=== PATIENT | male | born 1970 | race Caucasian/White ===

== ENCOUNTER 2017-04-18 11:24 | Inpatient (IN) | payer MEDICAID, OTHER ==
[~2017-04-18] VITALS: Ht 175.3 cm; Wt 75.0 kg
[2017-04-18] MEDS ORDERED: HALOPERIDOL LACTATE 5 MG/ML VIAL IM ONE (11:45)
[2017-04-18] MEDS ORDERED: LORazepam 2 MG/ML VIAL IM ONE (11:45)
[2017-04-18] MEDS ORDERED: DiphenhydrAMINE HCL 50 MG/ML VIAL IM ONE (11:45)
[2017-04-18] MEDS ORDERED: HALOPERIDOL 5 MG TABLET PO PRN (12:30)
[2017-04-18] MEDS ORDERED: LORazepam 2 MG TABLET PO PRN (12:30)
[2017-04-18] MEDS ORDERED: ZOLPIDEM TARTRATE 10 MG TABLET PO PRN (12:30)
[2017-04-18 12:43] LABS: BASOPHILS % (AUTO) 0.5 % (0.0-2.0); EOSINOPHILS % (AUTO) 2.2 % (1.0-6.0); HEMATOCRIT 41.8 % (41-53); LYMPHOCYTES # (AUTO) 1.6 K/uL (1.0-4.8); LYMPHOCYTES % (AUTO) 24.2 % (22.0-44.0); MEAN CORPUSCULAR HEMOGLOBIN 28.4 pg (26.0-34.0); MEAN CORPUSCULAR HGB CONC 33.5 G/dL (31.0-37.0); MEAN CORPUSCULAR VOLUME 85 fL (80-100); MONOCYTES # (AUTO) 0.5 K/uL (0.1-1.0); MONOCYTES % (AUTO) 7.2 % (2.0-9.0); NEUTROPHILS # (AUTO) 4.5 K/uL (1.8-7.7); NEUTROPHILS % (AUTO) 65.9 % (40.0-70.0); PLATELET COUNT (AUTO) 242 K/uL (150-450); RED BLOOD CELL COUNT(AUTO) 4.92 MIL/uL (4.50-5.90); RED CELL DISTRIBUTION WIDTH 13.7 % (11.5-14.5); WHITE BLOOD COUNT (AUTO) 6.8 K/uL (4.5-11.0)
[2017-04-18 12:56] LABS: ANION GAP 6 mmol/L (8-16); CALCIUM, TOTAL 8.6 mg/dL (8.8-10.5); CARBON DIOXIDE 29 mmol/L (22-29); CHLORIDE 105 mmol/L (98-107); CREATININE 0.86 mg/dL (0.60-1.30); GLOMERULAR FILTR. RATE CALC > 60 mL/min (>60); POTASSIUM 4.2 mmol/L (3.5-5.1); SODIUM SERUM 140 mmol/L (136-145); UREA NITROGEN, BLOOD 13 mg/dL (7-18)
[2017-04-18 14:22] LABS: ALANINE AMINOTRANSFERASE 16 U/L (12-78); ALBUMIN 3.5 g/dL (3.4-5.0); ASPARTATE AMINOTRANSFERASE 17 U/L (15-37); CHOL/HDL RATIO 6.5 (4.2-7.3)
[2017-04-18 14:39] LABS: BILIRUBIN,TOTAL 0.3 mg/dL (0.1-1.0)
[2017-04-18 16:03] VITALS: BP 121/76
[2017-04-18] MEDS ORDERED: INFLUENZA VIRUS VACCINE QVS 2017-18 (3YR+)/PF 60 MCG/0.5 ML SYRINGE IM ONE (19:30)
[2017-04-19] MEDS ORDERED: MAG HYDROX/AL HYDROX/SIMETH ES 30 ML SUSPENSION UDCUP PO PRN (07:45)
[2017-04-19] MEDS ORDERED: IBUPROFEN 600 MG TABLET PO PRN (07:45)
[2017-04-19] MEDS ORDERED: CloNIDine HCL 0.1 MG TABLET PO PRN (07:45)
[2017-04-19] MEDS ORDERED: BACITRACIN 28.4 GM OINTMENT TP PRN (07:45)
[2017-04-19] MEDS ORDERED: PETROLATUM,WHITE 71 GM JELLY TP PRN (07:45)
[2017-04-19] MEDS ORDERED: MAGNESIUM HYDROXIDE SUSPENSION 30 ML UDCUP PO PRN (07:45)
[2017-04-19] MEDS ORDERED: LOPERAMIDE HCL 2 MG CAPSULE PO PRN (07:45)
[2017-04-19] MEDS ORDERED: BENZOCAINE/MENTHOL LOZENGE MM PRN (07:45)
[2017-04-19] MEDS ORDERED: ALBUTEROL SULFATE HFA 90 MCG/PUFF 8 GM INHALER IH PRN (07:45)
[2017-04-19] MEDS ORDERED: ONDANSETRON HCL 4 MG TABLET PO PRN (07:45)
[2017-04-19] MEDS ORDERED: ACETAMINOPHEN 325 MG TABLET PO PRN (07:45)
[2017-04-19] MEDS: OMEGA-3/DHA/EPA/FISH OIL 500 MG CAPSULE PO SCH (09:00)
[2017-04-19] MEDS: RisperiDONE 1 MG TABLET PO SCH ×2 (09:00→17:00)
[2017-04-20] MEDS: RisperiDONE 1 MG TABLET PO SCH ×2 (08:28→16:46)
[2017-04-20] MEDS: OMEGA-3/DHA/EPA/FISH OIL 500 MG CAPSULE PO SCH (08:28)
[2017-04-21] MEDS: OMEGA-3/DHA/EPA/FISH OIL 500 MG CAPSULE PO SCH (09:00)
[2017-04-21] MEDS: RisperiDONE 1 MG TABLET PO SCH (09:00)
[2017-04-21] MEDS ORDERED: RISP0.5T61 PO (09:20)
== END 2017-04-21 10:30 | disposition home or self-care (01) | DRG 751 ==
LOC: EMS 11:26 → B3A 13:44
DX: F29 Unspecified psychosis not due to a substance or known physiological condition (principal); F15.20 Other stimulant dependence, uncomplicated; E83.51 Hypocalcemia; E78.5 Hyperlipidemia, unspecified; K59.00 Constipation, unspecified; R45.850 Homicidal ideations; Z59.0 Homelessness; Z78.1 Physical restraint status; F17.200 Nicotine dependence, unspecified, uncomplicated; Z71.51 Drug abuse counseling and surveillance of drug abuser; Z28.21 Immunization not carried out because of patient refusal
CPT/HCPCS: 84439; 84443; 96372; 99285; G0480; J1200; J1630; J2060

== ENCOUNTER 2017-09-22 08:02 | Emergency (ER) | payer MEDICAID, OTHER ==
[~2017-09-22] VITALS: Ht 170.2 cm; Wt 81.8 kg
[~2017-09-22 08:02] MED LIST: RISP1 PO
[2017-09-22 08:39] LABS: BASOPHILS % (AUTO) 0.8 % (0.0-2.0); EOSINOPHILS % (AUTO) 3.1 % (1.0-6.0); HEMATOCRIT 46.8 % (41-53); LYMPHOCYTES # (AUTO) 2.2 K/uL (1.0-4.8); LYMPHOCYTES % (AUTO) 33.7 % (22.0-44.0); MEAN CORPUSCULAR HEMOGLOBIN 28.5 pg (26.0-34.0); MEAN CORPUSCULAR HGB CONC 34.1 G/dL (31.0-37.0); MEAN CORPUSCULAR VOLUME 84 fL (80-100); MONOCYTES # (AUTO) 0.6 K/uL (0.1-1.0); MONOCYTES % (AUTO) 9.7 % (2.0-9.0); NEUTROPHILS # (AUTO) 3.5 K/uL (1.8-7.7); NEUTROPHILS % (AUTO) 52.7 % (40.0-70.0); PLATELET COUNT (AUTO) 234 K/uL (150-450); RED CELL DISTRIBUTION WIDTH 13.8 % (11.5-14.5)
[2017-09-22 08:50] LABS: ANION GAP 10 mmol/L (8-16); CALCIUM, TOTAL 9.3 mg/dL (8.8-10.5); CARBON DIOXIDE 27 mmol/L (22-29); CHLORIDE 103 mmol/L (98-107); CREATININE 0.97 mg/dL (0.60-1.30); GLOMERULAR FILTR. RATE CALC > 60 mL/min (>60); GLUCOSE,RANDOM 88 mg/dL (70-110); POTASSIUM 4.3 mmol/L (3.5-5.1); SODIUM SERUM 140 mmol/L (136-145); UREA NITROGEN, BLOOD 12 mg/dL (7-18)
[2017-09-22 08:56] LABS: ALANINE AMINOTRANSFERASE 23 U/L (12-78); ALBUMIN 4.2 g/dL (3.4-5.0); ALKALINE PHOSPHATASE 88 U/L (46-116); ASPARTATE AMINOTRANSFERASE 20 U/L (15-37); TOTAL PROTEIN, SERUM 7.9 g/dL (6.4-8.2)
[2017-09-22 09:00] LABS: AMPHET/METH SCREEN,URINE POSITIVE (NEGATIVE); BARBITURATE SCREEN, URINE NEGATIVE (NEGATIVE); BENZODIAZEPINES SCREEN,URINE NEGATIVE (NEGATIVE); CANNABINOID SCREEN,URINE NEGATIVE (NEGATIVE); COCAINE SCREEN,URINE NEGATIVE (NEGATIVE); METHADONE SCREEN, URINE NEGATIVE (NEGATIVE); OPIATE SCREEN,URINE NEGATIVE (NEGATIVE)
[2017-09-22 09:02] LABS: PHENCYCLIDINE SCREEN,URINE NEGATIVE (NEGATIVE)
[2017-09-22] MEDS ORDERED: HALOPERIDOL 5 MG TABLET PO ONE (09:30)
[2017-09-22] MEDS ORDERED: LORazepam 2 MG TABLET PO ONE (09:30)
[2017-09-22] MEDS ORDERED: LORazepam 1 MG TABLET ONE (09:45)
[2017-09-22] MEDS ORDERED: LORazepam 1 MG TABLET PO ONE (09:45)
[2017-09-22 10:29] VITALS: BP 109/70
== END 2017-09-22 10:54 | disposition home or self-care (01) ==
LOC: EMS 08:03
DX: F20.0 Paranoid schizophrenia (principal); F15.10 Other stimulant abuse, uncomplicated; F17.210 Nicotine dependence, cigarettes, uncomplicated
CPT/HCPCS: 36415; 80053; 80307; 85025; 99284; 99406; G0480

== ENCOUNTER 2017-10-10 23:57 | Inpatient (IN) | payer MEDICAID, OTHER ==
[~2017-10-10] VITALS: Ht 170.2 cm; Wt 81.8 kg
[2017-10-11] MEDS ORDERED: LORazepam 2 MG TABLET PO PRN (02:00)
[2017-10-11] MEDS ORDERED: QUEtiapine FUMARATE 100 MG TABLET PO PRN (02:00)
[2017-10-11] MEDS ORDERED: ZOLPIDEM TARTRATE 10 MG TABLET PO PRN (02:00)
[2017-10-11 03:01] VITALS: BP 110/87
[2017-10-11] MEDS ORDERED: PNEUMOCOCCAL VACCINE POLYVALENT 0.5 ML VIAL [PPSV23] IM ONE (03:30)
[2017-10-11 08:28] VITALS: BP 106/65
[2017-10-11] MEDS ORDERED: BENZOCAINE/MENTHOL LOZENGE MM PRN (08:30)
[2017-10-11] MEDS ORDERED: MAG HYDROX/AL HYDROX/SIMETH ES 30 ML SUSPENSION UDCUP PO PRN (08:30)
[2017-10-11] MEDS ORDERED: CloNIDine HCL 0.1 MG TABLET PO PRN (08:30)
[2017-10-11] MEDS ORDERED: ALBUTEROL SULFATE HFA 90 MCG/PUFF 8 GM INHALER IH PRN (08:30)
[2017-10-11] MEDS ORDERED: PETROLATUM,WHITE 71 GM JELLY TP PRN (08:30)
[2017-10-11] MEDS ORDERED: LOPERAMIDE HCL 2 MG CAPSULE PO PRN (08:30)
[2017-10-11] MEDS ORDERED: IBUPROFEN 600 MG TABLET PO PRN (08:30)
[2017-10-11] MEDS ORDERED: ONDANSETRON HCL 4 MG TABLET PO PRN (08:30)
[2017-10-11] MEDS ORDERED: ACETAMINOPHEN 325 MG TABLET PO PRN (08:30)
[2017-10-11] MEDS ORDERED: BACITRACIN 28.4 GM OINTMENT TP PRN (08:30)
[2017-10-11] MEDS ORDERED: MAGNESIUM HYDROXIDE SUSPENSION 30 ML UDCUP PO PRN (08:30)
[2017-10-11] MEDS: RisperiDONE 1 MG TABLET PO SCH ×2 (10:45→20:26)
[2017-10-11 16:19] VITALS: BP 112/70
[2017-10-11] MEDS: SIMVASTATIN 10 MG TABLET PO SCH (20:26)
[2017-10-12 06:42] VITALS: BP 120/86
[2017-10-12 08:38] VITALS: BP 102/60
[2017-10-12] MEDS: HYDROCORTISONE 0.5% 30 GM CREAM TP SCH ×2 (09:00→17:00)
[2017-10-12] MEDS: RisperiDONE 1 MG TABLET PO SCH ×2 (09:00→21:00)
[2017-10-12 16:21] VITALS: BP 102/64
[2017-10-12] MEDS: SIMVASTATIN 10 MG TABLET PO SCH (21:00)
[2017-10-13 06:00] VITALS: BP 111/60
[2017-10-13] MEDS: RisperiDONE 1 MG TABLET PO SCH ×2 (09:00→20:15)
[2017-10-13] MEDS: HYDROCORTISONE 0.5% 30 GM CREAM TP SCH ×2 (09:00→17:08)
[2017-10-13 09:33] VITALS: BP 112/72
[2017-10-13 16:52] VITALS: BP 119/65
[2017-10-13] MEDS: SIMVASTATIN 10 MG TABLET PO SCH (20:15)
[2017-10-14 06:34] VITALS: BP 110/62
[2017-10-14 08:24] VITALS: BP 101/60
[2017-10-14] MEDS: RisperiDONE 1 MG TABLET PO SCH ×2 (08:56→20:05)
[2017-10-14] MEDS: HYDROCORTISONE 0.5% 30 GM CREAM TP SCH ×2 (08:56→17:21)
[2017-10-14 16:45] VITALS: BP 105/65
[2017-10-14] MEDS: SIMVASTATIN 10 MG TABLET PO SCH (20:05)
[2017-10-15 01:23] VITALS: BP 102/60
[2017-10-15] MEDS: HYDROCORTISONE 0.5% 30 GM CREAM TP SCH ×2 (08:35→16:23)
[2017-10-15] MEDS: RisperiDONE 1 MG TABLET PO SCH ×2 (08:35→20:17)
[2017-10-15 08:44] VITALS: BP 120/72
[2017-10-15 08:53] LABS: BASOPHILS % (AUTO) 0.6 % (0.0-2.0); EOSINOPHILS % (AUTO) 3.5 % (1.0-6.0); HEMATOCRIT 40.5 % (41-53); HEMOGLOBIN 13.8 g/dL (13.5-17.5); LYMPHOCYTES # (AUTO) 2.2 K/uL (1.0-4.8); LYMPHOCYTES % (AUTO) 33.7 % (22.0-44.0); MEAN CORPUSCULAR HEMOGLOBIN 28.4 pg (26.0-34.0); MEAN CORPUSCULAR VOLUME 83 fL (80-100); MONOCYTES # (AUTO) 0.6 K/uL (0.1-1.0); MONOCYTES % (AUTO) 9.6 % (2.0-9.0); NEUTROPHILS # (AUTO) 3.4 K/uL (1.8-7.7); NEUTROPHILS % (AUTO) 52.6 % (40.0-70.0); PLATELET COUNT (AUTO) 186 K/uL (150-450); RED BLOOD CELL COUNT(AUTO) 4.86 MIL/uL (4.50-5.90); RED CELL DISTRIBUTION WIDTH 13.1 % (11.5-14.5)
[2017-10-15 09:41] LABS: ALANINE AMINOTRANSFERASE 21 U/L (12-78); ALBUMIN 3.3 g/dL (3.4-5.0); ALKALINE PHOSPHATASE 62 U/L (46-116); ANION GAP 6 mmol/L (8-16); ASPARTATE AMINOTRANSFERASE 14 U/L (15-37); BILIRUBIN,TOTAL 0.3 mg/dL (0.1-1.0); CALCIUM, TOTAL 8.5 mg/dL (8.8-10.5); CARBON DIOXIDE 29 mmol/L (22-29); CHLORIDE 105 mmol/L (98-107); CHOLESTEROL 209 mg/dL (131-200); FREE T4 (FREE THYROXINE) 0.76 ng/dL (0.76-1.46); GLOMERULAR FILTR. RATE CALC > 60 mL/min (>60); GLUCOSE,RANDOM 86 mg/dL (70-110); HDL CHOLESTEROL 42 mg/dL (40-60); LDL CHOL (CALC.) 145 mg/dL (0-130); POTASSIUM 4.1 mmol/L (3.5-5.1); SODIUM SERUM 140 mmol/L (136-145); THYROID STIMULATING HORMONE 2.38 uIU/mL (0.36-3.74); TOTAL PROTEIN, SERUM 6.5 g/dL (6.4-8.2); TRIGLYCERIDES 111 mg/dL (15-150); UREA NITROGEN, BLOOD 14 mg/dL (7-18)
[2017-10-15 16:31] VITALS: BP 123/68
[2017-10-15] MEDS: SIMVASTATIN 10 MG TABLET PO SCH (20:17)
[2017-10-16 02:08] VITALS: BP 101/63
[2017-10-16 08:11] VITALS: BP 119/74
[2017-10-16] MEDS: RisperiDONE 1 MG TABLET PO SCH ×2 (08:27→20:18)
[2017-10-16] MEDS: HYDROCORTISONE 0.5% 30 GM CREAM TP SCH ×2 (08:27→16:02)
[2017-10-16 16:10] VITALS: BP 109/79
[2017-10-16] MEDS: SIMVASTATIN 10 MG TABLET PO SCH (20:18)
[2017-10-17 04:25] VITALS: BP 103/65
[2017-10-17 08:51] VITALS: BP 109/6
[2017-10-17] MEDS: RisperiDONE 1 MG TABLET PO SCH ×2 (09:45→20:17)
[2017-10-17] MEDS: HYDROCORTISONE 0.5% 30 GM CREAM TP SCH ×2 (09:45→16:10)
[2017-10-17 16:10] VITALS: BP 108/66
[2017-10-17] MEDS: SIMVASTATIN 10 MG TABLET PO SCH (20:17)
[2017-10-18 06:43] VITALS: BP 108/65
[2017-10-18 08:36] VITALS: BP 108/76
[2017-10-18] MEDS ORDERED: RISP1 PO (08:55)
[2017-10-18] MEDS: HYDROCORTISONE 0.5% 30 GM CREAM TP SCH (09:05)
[2017-10-18] MEDS: RisperiDONE 1 MG TABLET PO SCH (09:05)
[2017-10-18] MEDS ORDERED: SIMV-259 PO (09:09)
== END 2017-10-18 14:05 | disposition home or self-care (01) | DRG 750 ==
LOC: B2S 10-11 02:06
DX: F25.1 Schizoaffective disorder, depressive type (principal); F15.20 Other stimulant dependence, uncomplicated; I10 Essential (primary) hypertension; Z59.0 Homelessness; E78.5 Hyperlipidemia, unspecified; E78.00 Pure hypercholesterolemia, unspecified; F17.210 Nicotine dependence, cigarettes, uncomplicated; F41.9 Anxiety disorder, unspecified; G47.00 Insomnia, unspecified; L30.9 Dermatitis, unspecified; Z91.5 Personal history of self-harm; Z28.21 Immunization not carried out because of patient refusal; Z71.6 Tobacco abuse counseling; Z71.51 Drug abuse counseling and surveillance of drug abuser; Z72.89 Other problems related to lifestyle; Z71.41 Alcohol abuse counseling and surveillance of alcoholic; Z79.899 Other long term (current) drug therapy
CPT/HCPCS: 84439; 84443; 99285

== ENCOUNTER 2018-01-22 11:24 | Inpatient (IN) | payer MEDICAID ==
[~2018-01-22] VITALS: Ht 170.2 cm; Wt 82.1 kg
[~2018-01-22 11:24] MED LIST changes: +SIMV-259 PO
[2018-01-22 13:41] LABS: EOSINOPHILS % (AUTO) 2.1 % (1.0-6.0); HEMOGLOBIN 13.5 g/dL (13.5-17.5); LYMPHOCYTES # (AUTO) 1.7 K/uL (1.0-4.8); LYMPHOCYTES % (AUTO) 31.3 % (22.0-44.0); MEAN CORPUSCULAR HEMOGLOBIN 28.6 pg (26.0-34.0); MEAN CORPUSCULAR HGB CONC 33.8 G/dL (31.0-37.0); MEAN CORPUSCULAR VOLUME 85 fL (80-100); MONOCYTES # (AUTO) 0.5 K/uL (0.1-1.0); MONOCYTES % (AUTO) 9.7 % (2.0-9.0); NEUTROPHILS % (AUTO) 55.9 % (40.0-70.0); PLATELET COUNT (AUTO) 195 K/uL (150-450); RED BLOOD CELL COUNT(AUTO) 4.73 MIL/uL (4.50-5.90)
[2018-01-22 13:48] LABS: AMPHET/METH SCREEN,URINE NEGATIVE (NEGATIVE); BARBITURATE SCREEN, URINE NEGATIVE (NEGATIVE); BENZODIAZEPINES SCREEN,URINE NEGATIVE (NEGATIVE); CANNABINOID SCREEN,URINE NEGATIVE (NEGATIVE); COCAINE SCREEN,URINE NEGATIVE (NEGATIVE); METHADONE SCREEN, URINE NEGATIVE (NEGATIVE); OPIATE SCREEN,URINE NEGATIVE (NEGATIVE); PHENCYCLIDINE SCREEN,URINE NEGATIVE (NEGATIVE)
[2018-01-22 13:58] LABS: ANION GAP 5 mmol/L (8-16); CALCIUM, TOTAL 8.9 mg/dL (8.8-10.5); CARBON DIOXIDE 29 mmol/L (22-29); CHLORIDE 105 mmol/L (98-107); CREATININE 0.93 mg/dL (0.60-1.30); GLOMERULAR FILTR. RATE CALC > 60 mL/min (>60); GLUCOSE,RANDOM 85 mg/dL (70-110); SODIUM SERUM 139 mmol/L (136-145); UREA NITROGEN, BLOOD 9 mg/dL (7-18)
[2018-01-22 14:03] LABS: ALANINE AMINOTRANSFERASE 19 U/L (12-78); ALBUMIN 3.7 g/dL (3.4-5.0); ALKALINE PHOSPHATASE 65 U/L (46-116); ASPARTATE AMINOTRANSFERASE 13 U/L (15-37); BILIRUBIN,TOTAL 0.4 mg/dL (0.1-1.0)
[2018-01-22] MEDS ORDERED: ZOLPIDEM TARTRATE 10 MG TABLET PO PRN (18:30)
[2018-01-22] MEDS ORDERED: HALOPERIDOL 5 MG TABLET PO PRN (18:30)
[2018-01-22] MEDS ORDERED: ACETAMINOPHEN 325 MG TABLET PO PRN ×2 (18:45→21:00)
[2018-01-22] MEDS ORDERED: IBUPROFEN 400 MG TABLET PO PRN ×2 (18:45→21:00)
[2018-01-22 20:17] VITALS: BP 111/69
[2018-01-22 20:21] VITALS: BP 111/69
[2018-01-22] MEDS: LORazepam 2 MG TABLET PO PRN (20:30)
[2018-01-22] MEDS ORDERED: MAG HYDROX/AL HYDROX/SIMETH ES 30 ML SUSPENSION UDCUP PO PRN (21:00)
[2018-01-22] MEDS ORDERED: PETROLATUM,WHITE 71 GM JELLY TP PRN (21:00)
[2018-01-22] MEDS ORDERED: MAGNESIUM HYDROXIDE SUSPENSION 30 ML UDCUP PO PRN (21:00)
[2018-01-22] MEDS ORDERED: CloNIDine HCL 0.1 MG TABLET PO PRN (21:00)
[2018-01-22] MEDS ORDERED: ONDANSETRON HCL 4 MG TABLET PO PRN (21:00)
[2018-01-22] MEDS ORDERED: LOPERAMIDE HCL 2 MG CAPSULE PO PRN (21:00)
[2018-01-23 06:45] VITALS: BP 114/68
[2018-01-23 08:50] VITALS: BP 103/60
[2018-01-23] MEDS: NICOTINE 21 MG/24 HOUR PATCH TD SCH ×2 (09:03→14:14)
[2018-01-23] MEDS: BACITRACIN 28.4 GM OINTMENT TP SCH ×3 (09:03→16:38)
[2018-01-23 19:00] VITALS: BP 116/62
[2018-01-23] MEDS: RisperiDONE 1 MG TABLET PO SCH (20:28)
[2018-01-24 06:15] VITALS: BP 100/70
[2018-01-24 08:48] VITALS: BP 106/73
[2018-01-24] MEDS: NICOTINE 21 MG/24 HOUR PATCH TD SCH (09:00)
[2018-01-24] MEDS: RisperiDONE 1 MG TABLET PO SCH ×2 (09:48→20:40)
[2018-01-24] MEDS: BACITRACIN 28.4 GM OINTMENT TP SCH ×2 (09:52→16:33)
[2018-01-24 16:40] VITALS: BP 116/69
[2018-01-24] MEDS: LORazepam 2 MG TABLET PO PRN (17:10)
[2018-01-25 08:45] VITALS: BP 101/62
[2018-01-25] MEDS: BACITRACIN 28.4 GM OINTMENT TP SCH ×2 (09:00→16:43)
[2018-01-25] MEDS: NICOTINE 21 MG/24 HOUR PATCH TD SCH (09:00)
[2018-01-25] MEDS: RisperiDONE 1 MG TABLET PO SCH ×2 (09:40→21:06)
[2018-01-25 16:10] VITALS: BP 109/65
[2018-01-26 01:38] VITALS: BP 107/65
[2018-01-26 08:00] VITALS: BP 108/69
[2018-01-26] MEDS: NICOTINE 21 MG/24 HOUR PATCH TD SCH (09:07)
[2018-01-26] MEDS: RisperiDONE 1 MG TABLET PO SCH ×2 (09:07→20:19)
[2018-01-26] MEDS: BACITRACIN 28.4 GM OINTMENT TP SCH ×2 (09:07→16:29)
[2018-01-26 16:41] VITALS: BP 117/60
[2018-01-27 07:00] VITALS: BP 107/62
[2018-01-27] MEDS: NICOTINE 21 MG/24 HOUR PATCH TD SCH (08:22)
[2018-01-27] MEDS: RisperiDONE 1 MG TABLET PO SCH ×2 (08:22→20:15)
[2018-01-27] MEDS: BACITRACIN 28.4 GM OINTMENT TP SCH ×2 (08:22→16:39)
[2018-01-27 08:37] VITALS: BP 109/76
[2018-01-27 16:14] VITALS: BP 108/78
[2018-01-28 05:34] VITALS: BP 110/67
[2018-01-28 08:59] VITALS: BP 100/60
[2018-01-28] MEDS: RisperiDONE 1 MG TABLET PO SCH (09:27)
[2018-01-28] MEDS: BACITRACIN 28.4 GM OINTMENT TP SCH (09:28)
[2018-01-28] MEDS: NICOTINE 21 MG/24 HOUR PATCH TD SCH (09:28)
[2018-01-28] MEDS ORDERED: RISP1 PO (12:01)
[2018-01-28] MEDS ORDERED: BACI30OI6 TP (12:01)
== END 2018-01-28 13:28 | disposition home or self-care (01) | DRG 750 ==
LOC: EMS 11:25 → B2S 19:00
PROVIDERS: ATTEND Psychiatry & Neurology Child & Adolescent Psychiatry
DX: F25.1 Schizoaffective disorder, depressive type (principal); R45.851 Suicidal ideations; Z91.14 Patient's other noncompliance with medication regimen; E78.5 Hyperlipidemia, unspecified; I10 Essential (primary) hypertension; F15.10 Other stimulant abuse, uncomplicated; F10.10 Alcohol abuse, uncomplicated; F12.90 Cannabis use, unspecified, uncomplicated; F17.210 Nicotine dependence, cigarettes, uncomplicated; F41.9 Anxiety disorder, unspecified; Z71.41 Alcohol abuse counseling and surveillance of alcoholic; Z71.51 Drug abuse counseling and surveillance of drug abuser; Z71.6 Tobacco abuse counseling; Z59.0 Homelessness; Z91.5 Personal history of self-harm
CPT/HCPCS: 99285; 99406; G0480

== ENCOUNTER 2018-02-12 18:16 | Emergency (ER) | payer MEDICAID, OTHER ==
[~2018-02-12] VITALS: Ht 170.2 cm; Wt 81.8 kg
[~2018-02-12 18:16] MED LIST changes: +BACI30OI6 TP; -SIMV-259 PO
[2018-02-12 20:26] LABS: BASOPHILS % (AUTO) 1.2 % (0.0-2.0); EOSINOPHILS % (AUTO) 2.1 % (1.0-6.0); HEMATOCRIT 43.6 % (41-53); HEMOGLOBIN 14.4 g/dL (13.5-17.5); LYMPHOCYTES # (AUTO) 2.5 K/uL (1.0-4.8); MEAN CORPUSCULAR HEMOGLOBIN 28.1 pg (26.0-34.0); MEAN CORPUSCULAR HGB CONC 33.1 G/dL (31.0-37.0); MEAN CORPUSCULAR VOLUME 85 fL (80-100); MONOCYTES # (AUTO) 0.6 K/uL (0.1-1.0); MONOCYTES % (AUTO) 9.4 % (2.0-9.0); NEUTROPHILS # (AUTO) 3.3 K/uL (1.8-7.7); NEUTROPHILS % (AUTO) 50.3 % (40.0-70.0); PLATELET COUNT (AUTO) 228 K/uL (150-450); RED BLOOD CELL COUNT(AUTO) 5.13 MIL/uL (4.50-5.90); RED CELL DISTRIBUTION WIDTH 13.6 % (11.5-14.5)
[2018-02-12 20:53] LABS: ANION GAP 8 mmol/L (8-16); CALCIUM, TOTAL 9.3 mg/dL (8.8-10.5); CARBON DIOXIDE 28 mmol/L (22-29); CHLORIDE 105 mmol/L (98-107); GLOMERULAR FILTR. RATE CALC > 60 mL/min (>60); GLUCOSE,RANDOM 94 mg/dL (70-110); POTASSIUM 3.9 mmol/L (3.5-5.1); SODIUM SERUM 141 mmol/L (136-145); UREA NITROGEN, BLOOD 12 mg/dL (7-18)
[2018-02-12 20:59] LABS: ALANINE AMINOTRANSFERASE 28 U/L (12-78); ALBUMIN 3.7 g/dL (3.4-5.0); ALKALINE PHOSPHATASE 72 U/L (46-116); ASPARTATE AMINOTRANSFERASE 14 U/L (15-37); BILIRUBIN,TOTAL 0.5 mg/dL (0.1-1.0); TOTAL PROTEIN, SERUM 7.2 g/dL (6.4-8.2)
[2018-02-12 21:16] LABS: AMPHET/METH SCREEN,URINE POSITIVE (NEGATIVE); BARBITURATE SCREEN, URINE NEGATIVE (NEGATIVE); BENZODIAZEPINES SCREEN,URINE NEGATIVE (NEGATIVE); CANNABINOID SCREEN,URINE NEGATIVE (NEGATIVE); COCAINE SCREEN,URINE NEGATIVE (NEGATIVE); METHADONE SCREEN, URINE NEGATIVE (NEGATIVE); OPIATE SCREEN,URINE NEGATIVE (NEGATIVE)
[2018-02-12 21:19] LABS: PHENCYCLIDINE SCREEN,URINE NEGATIVE (NEGATIVE)
[2018-02-12] MEDS ORDERED: DiphenhydrAMINE HCL 25 MG CAPSULE PO ONE (21:30)
[2018-02-12] MEDS ORDERED: HALOPERIDOL 5 MG TABLET PO ONE (21:30)
[2018-02-12 22:22] VITALS: BP 119/75
== END 2018-02-12 22:24 | disposition home or self-care (01) ==
LOC: EMS 18:17
DX: F25.1 Schizoaffective disorder, depressive type (principal); F12.90 Cannabis use, unspecified, uncomplicated; F15.90 Other stimulant use, unspecified, uncomplicated; Z79.899 Other long term (current) drug therapy
CPT/HCPCS: 36415; 80053; 80307; 85025; 99284; G0480

== ENCOUNTER 2018-02-13 17:31 | Inpatient (IN) | payer MEDICAID, OTHER ==
[~2018-02-13] VITALS: Ht 170.2 cm; Wt 83.0 kg
[~2018-02-13 17:31] MED LIST changes: -BACI30OI6 TP
[2018-02-13 18:05] LABS: BASOPHILS % (AUTO) 0.9 % (0.0-2.0); HEMATOCRIT 41.3 % (41-53); HEMOGLOBIN 13.8 g/dL (13.5-17.5); LYMPHOCYTES # (AUTO) 2.3 K/uL (1.0-4.8); LYMPHOCYTES % (AUTO) 43.5 % (22.0-44.0); MEAN CORPUSCULAR HEMOGLOBIN 27.9 pg (26.0-34.0); MEAN CORPUSCULAR HGB CONC 33.3 G/dL (31.0-37.0); MEAN CORPUSCULAR VOLUME 84 fL (80-100); MONOCYTES # (AUTO) 0.4 K/uL (0.1-1.0); MONOCYTES % (AUTO) 8.5 % (2.0-9.0); NEUTROPHILS # (AUTO) 2.3 K/uL (1.8-7.7); NEUTROPHILS % (AUTO) 45.1 % (40.0-70.0); PLATELET COUNT (AUTO) 207 K/uL (150-450); RED BLOOD CELL COUNT(AUTO) 4.93 MIL/uL (4.50-5.90); RED CELL DISTRIBUTION WIDTH 13.4 % (11.5-14.5)
[2018-02-13 18:15] LABS: ANION GAP 9 mmol/L (8-16); CALCIUM, TOTAL 8.6 mg/dL (8.8-10.5); CARBON DIOXIDE 26 mmol/L (22-29); CHLORIDE 106 mmol/L (98-107); CREATININE 0.99 mg/dL (0.60-1.30); GLOMERULAR FILTR. RATE CALC > 60 mL/min (>60); GLUCOSE,RANDOM 92 mg/dL (70-110); POTASSIUM 3.9 mmol/L (3.5-5.1); SODIUM SERUM 141 mmol/L (136-145); UREA NITROGEN, BLOOD 11 mg/dL (7-18)
[2018-02-13 18:21] LABS: ALANINE AMINOTRANSFERASE 23 U/L (12-78); ALBUMIN 3.4 g/dL (3.4-5.0); ALKALINE PHOSPHATASE 67 U/L (46-116); ASPARTATE AMINOTRANSFERASE 13 U/L (15-37); BILIRUBIN,TOTAL 0.5 mg/dL (0.1-1.0); TOTAL PROTEIN, SERUM 6.6 g/dL (6.4-8.2)
[2018-02-13] MEDS ORDERED: HALOPERIDOL 5 MG TABLET PO PRN (22:00)
[2018-02-13] MEDS ORDERED: ZOLPIDEM TARTRATE 10 MG TABLET PO PRN (22:00)
[2018-02-13] MEDS ORDERED: LORazepam 2 MG TABLET PO PRN (22:00)
[2018-02-13 22:25] LABS: AMPHET/METH SCREEN,URINE NEGATIVE (NEGATIVE); BARBITURATE SCREEN, URINE NEGATIVE (NEGATIVE); BENZODIAZEPINES SCREEN,URINE NEGATIVE (NEGATIVE); CANNABINOID SCREEN,URINE NEGATIVE (NEGATIVE); COCAINE SCREEN,URINE NEGATIVE (NEGATIVE); METHADONE SCREEN, URINE NEGATIVE (NEGATIVE); OPIATE SCREEN,URINE NEGATIVE (NEGATIVE)
[2018-02-13 22:28] LABS: PHENCYCLIDINE SCREEN,URINE NEGATIVE (NEGATIVE)
[2018-02-14 11:42] VITALS: BP 111/68
[2018-02-14] MEDS ORDERED: MAG HYDROX/AL HYDROX/SIMETH ES 30 ML SUSPENSION UDCUP PO PRN (15:30)
[2018-02-14] MEDS ORDERED: ONDANSETRON HCL 4 MG TABLET PO PRN (15:30)
[2018-02-14] MEDS ORDERED: IBUPROFEN 400 MG TABLET PO PRN (15:30)
[2018-02-14] MEDS ORDERED: ACETAMINOPHEN 325 MG TABLET PO PRN (15:30)
[2018-02-14] MEDS ORDERED: DOCUSATE SODIUM 100 MG CAPSULE PO PRN (15:30)
[2018-02-14] MEDS ORDERED: CloNIDine HCL 0.1 MG TABLET PO PRN (15:30)
[2018-02-14] MEDS ORDERED: MAGNESIUM HYDROXIDE SUSPENSION 30 ML UDCUP PO PRN (15:30)
[2018-02-14] MEDS ORDERED: NICOTINE 14 MG/24 HOUR PATCH TD PRN (15:30)
[2018-02-14] MEDS ORDERED: ALBUTEROL SULFATE HFA 90 MCG/PUFF 8 GM INHALER IH PRN (15:30)
[2018-02-14] MEDS ORDERED: LOPERAMIDE HCL 2 MG CAPSULE PO PRN (15:30)
[2018-02-14] MEDS ORDERED: PNEUMOCOCCAL VACCINE POLYVALENT 0.5 ML VIAL [PPSV23] IM ONE (15:30)
[2018-02-14] MEDS ORDERED: PETROLATUM,WHITE 71 GM JELLY TP PRN (15:30)
[2018-02-14] MEDS ORDERED: GuaiFENesin/D-METHORPHAN [SUGAR-FREE] 200-20MG/10 ML SYRUP UDCUP PO PRN (15:30)
[2018-02-14 16:05] VITALS: BP 106/64
[2018-02-15] VITALS: BP 100/62
[2018-02-15 08:08] VITALS: BP 110/60
[2018-02-15 16:04] VITALS: BP 110/73
[2018-02-15] MEDS: RisperiDONE 1 MG TABLET PO SCH (20:08)
[2018-02-16 08:23] VITALS: BP 98/59
[2018-02-16] MEDS: RisperiDONE 1 MG TABLET PO SCH (08:46)
[2018-02-16] MEDS ORDERED: MUPIROCIN CALCIUM 2% 15 GM CREAM TP SCH (11:00)
[2018-02-16] MEDS ORDERED: MUPI1OIN5 NS (12:24)
== END 2018-02-16 14:45 | disposition home or self-care (01) | DRG 750 ==
LOC: EMS 17:32 → B2S 02-14 11:45
PROVIDERS: ATTEND Psychiatry & Neurology Child & Adolescent Psychiatry
DX: F25.1 Schizoaffective disorder, depressive type (principal); R45.851 Suicidal ideations; E83.51 Hypocalcemia; E78.5 Hyperlipidemia, unspecified; I10 Essential (primary) hypertension; F10.10 Alcohol abuse, uncomplicated; F12.90 Cannabis use, unspecified, uncomplicated; F15.90 Other stimulant use, unspecified, uncomplicated; F17.200 Nicotine dependence, unspecified, uncomplicated; F19.10 Other psychoactive substance abuse, uncomplicated; F41.9 Anxiety disorder, unspecified; Z79.899 Other long term (current) drug therapy; Z71.6 Tobacco abuse counseling; Z71.41 Alcohol abuse counseling and surveillance of alcoholic; Z71.51 Drug abuse counseling and surveillance of drug abuser; Z59.0 Homelessness; Y90.9 Presence of alcohol in blood, level not specified
CPT/HCPCS: 87081; 99285; G0480

== ENCOUNTER 2018-06-24 13:58 | Emergency (ER) | payer MEDICAID, OTHER ==
[~2018-06-24] VITALS: Ht 175.3 cm; Wt 100.0 kg
[~2018-06-24 13:58] MED LIST changes: +MUPI1OIN5 NS
[2018-06-24] MEDS ORDERED: RisperiDONE 1 MG TABLET PO ONE (18:15)
[2018-06-24] MEDS ORDERED: ACETAMINOPHEN 325 MG TABLET PO ONE (18:15)
[2018-06-24 18:52] LABS: EOSINOPHILS % (AUTO) 0.4 % (1.0-6.0); HEMOGLOBIN 14.3 g/dL (13.5-17.5); LYMPHOCYTES # (AUTO) 2.5 K/uL (1.0-4.8); LYMPHOCYTES % (AUTO) 26.4 % (22.0-44.0); MEAN CORPUSCULAR HEMOGLOBIN 28.5 pg (26.0-34.0); MEAN CORPUSCULAR VOLUME 84 fL (80-100); MONOCYTES # (AUTO) 1.2 K/uL (0.1-1.0); MONOCYTES % (AUTO) 12.4 % (2.0-9.0); NEUTROPHILS # (AUTO) 5.7 K/uL (1.8-7.7); NEUTROPHILS % (AUTO) 59.8 % (40.0-70.0); PLATELET COUNT (AUTO) 217 K/uL (150-450); RED BLOOD CELL COUNT(AUTO) 5.01 MIL/uL (4.50-5.90); RED CELL DISTRIBUTION WIDTH 14.2 % (11.5-14.5)
[2018-06-24 19:00] LABS: ANION GAP 11 mmol/L (8-16); CALCIUM, TOTAL 9.4 mg/dL (8.8-10.5); CARBON DIOXIDE 28 mmol/L (22-29); CHLORIDE 99 mmol/L (98-107); CREATININE 0.95 mg/dL (0.60-1.30); GLOMERULAR FILTR. RATE CALC > 60 mL/min (>60); GLUCOSE,RANDOM 90 mg/dL (70-110); POTASSIUM 3.8 mmol/L (3.5-5.1); SODIUM SERUM 138 mmol/L (136-145); UREA NITROGEN, BLOOD 12 mg/dL (7-18)
[2018-06-24 19:05] LABS: ALANINE AMINOTRANSFERASE 44 U/L (12-78); ALBUMIN 4.3 g/dL (3.4-5.0); ALKALINE PHOSPHATASE 105 U/L (46-116); ASPARTATE AMINOTRANSFERASE 70 U/L (15-37); TOTAL PROTEIN, SERUM 8.1 g/dL (6.4-8.2)
[2018-06-24 20:00] VITALS: BP 141/97
== END 2018-06-24 20:40 | disposition home or self-care (01) ==
LOC: EMS 14:00
DX: F20.9 Schizophrenia, unspecified (principal); F12.90 Cannabis use, unspecified, uncomplicated; F19.90 Other psychoactive substance use, unspecified, uncomplicated; F15.90 Other stimulant use, unspecified, uncomplicated
CPT/HCPCS: 36415; 80053; 85025; 99284; G0480

== ENCOUNTER 2018-06-26 09:36 | Inpatient (IN) | payer MEDICAID ==
[~2018-06-26] VITALS: Ht 170.2 cm; Wt 88.9 kg
[2018-06-26 12:08] VITALS: BP 110/69
[2018-06-26] MEDS ORDERED: HALOPERIDOL 5 MG TABLET PO PRN (12:15)
[2018-06-26] MEDS ORDERED: LORazepam 2 MG TABLET PO PRN (12:15)
[2018-06-26] MEDS ORDERED: ZOLPIDEM TARTRATE 10 MG TABLET PO PRN (12:15)
[2018-06-26 14:08] VITALS: BP 110/73
[2018-06-26] MEDS ORDERED: NICOTINE 14 MG/24 HOUR PATCH TD PRN (14:45)
[2018-06-26] MEDS ORDERED: ALBUTEROL SULFATE HFA 90 MCG/PUFF 8 GM INHALER IH PRN (14:45)
[2018-06-26] MEDS ORDERED: DOCUSATE SODIUM 100 MG CAPSULE PO PRN (14:45)
[2018-06-26] MEDS ORDERED: LOPERAMIDE HCL 2 MG CAPSULE PO PRN (14:45)
[2018-06-26] MEDS ORDERED: CloNIDine HCL 0.1 MG TABLET PO PRN (14:45)
[2018-06-26] MEDS ORDERED: GuaiFENesin/D-METHORPHAN [SUGAR-FREE] 200-20MG/10 ML SYRUP UDCUP PO PRN (14:45)
[2018-06-26] MEDS ORDERED: PETROLATUM,WHITE 71 GM JELLY TP PRN (14:45)
[2018-06-26] MEDS ORDERED: ONDANSETRON HCL 4 MG TABLET PO PRN (14:45)
[2018-06-26] MEDS ORDERED: IBUPROFEN 400 MG TABLET PO PRN (14:45)
[2018-06-26] MEDS ORDERED: ACETAMINOPHEN 325 MG TABLET PO PRN (14:45)
[2018-06-26] MEDS ORDERED: MAGNESIUM HYDROXIDE SUSPENSION 30 ML UDCUP PO PRN (14:45)
[2018-06-26] MEDS ORDERED: MAG HYDROX/AL HYDROX/SIMETH ES 30 ML SUSPENSION UDCUP PO PRN (14:45)
[2018-06-26 16:00] VITALS: BP 112/65
[2018-06-27 07:11] VITALS: BP 124/68
[2018-06-27 08:29] VITALS: BP 94/61
[2018-06-27] MEDS: RisperiDONE 1 MG TABLET PO SCH ×2 (11:43→20:38)
[2018-06-28 06:16] VITALS: BP 108/68
[2018-06-28 09:03] VITALS: BP 101/64
[2018-06-28] MEDS: RisperiDONE 1 MG TABLET PO SCH ×2 (09:03→20:04)
[2018-06-28 16:08] VITALS: BP 131/83
[2018-06-29 02:14] VITALS: BP 118/86
[2018-06-29 08:39] VITALS: BP 96/55
[2018-06-29] MEDS: RisperiDONE 1 MG TABLET PO SCH ×2 (08:47→20:08)
[2018-06-29 16:17] VITALS: BP 109/61
[2018-06-30 02:08] VITALS: BP 108/72
[2018-06-30 08:30] VITALS: BP 100/65
[2018-06-30] MEDS: RisperiDONE 1 MG TABLET PO SCH ×2 (09:00→20:21)
[2018-06-30 16:11] VITALS: BP 123/67
[2018-07-01 01:47] VITALS: BP 116/73
[2018-07-01 08:24] VITALS: BP 102/48
[2018-07-01] MEDS: RisperiDONE 1 MG TABLET PO SCH ×2 (08:37→20:35)
[2018-07-01 09:35] VITALS: BP 118/72
[2018-07-01] MEDS ORDERED: TUBERCULIN, PURIFIED PROTEIN DERIVATIVE 5 TU/0.1 ML SYG ID ONE (11:15)
[2018-07-01 16:20] VITALS: BP 117/62
[2018-07-02] MEDS: RisperiDONE 1 MG TABLET PO SCH (08:28)
[2018-07-02 08:29] VITALS: BP 108/69
[2018-07-02] MEDS ORDERED: RISP1 PO (10:31)
== END 2018-07-02 11:50 | disposition home or self-care (01) | DRG 750 ==
LOC: B2S 12:07
DX: F25.1 Schizoaffective disorder, depressive type (principal); R45.851 Suicidal ideations; E83.51 Hypocalcemia; F41.9 Anxiety disorder, unspecified; I10 Essential (primary) hypertension; F15.90 Other stimulant use, unspecified, uncomplicated; E78.5 Hyperlipidemia, unspecified; R74.0 Nonspecific elevation of levels of transaminase and lactic acid dehydrogenase [LDH]; Z79.899 Other long term (current) drug therapy; Z59.0 Homelessness; Z91.5 Personal history of self-harm
CPT/HCPCS: 87081; 90686

== ENCOUNTER 2018-11-04 22:44 | Inpatient (IN) | payer MEDICAID, OTHER ==
[~2018-11-04] VITALS: Ht 170.2 cm; Wt 90.0 kg
[~2018-11-04 22:44] MED LIST changes: -MUPI1OIN5 NS
[2018-11-05 00:10] LABS: BASOPHILS % (AUTO) 1.1 % (0.0-2.0); EOSINOPHILS % (AUTO) 3.9 % (1.0-6.0); HEMOGLOBIN 13.6 g/dL (13.5-17.5); LYMPHOCYTES # (AUTO) 3.4 K/uL (1.0-4.8); LYMPHOCYTES % (AUTO) 44.8 % (22.0-44.0); MEAN CORPUSCULAR HEMOGLOBIN 27.7 pg (26.0-34.0); MEAN CORPUSCULAR HGB CONC 32.5 G/dL (31.0-37.0); MEAN CORPUSCULAR VOLUME 85 fL (80-100); MONOCYTES % (AUTO) 12.6 % (2.0-9.0); NEUTROPHILS # (AUTO) 2.8 K/uL (1.8-7.7); NEUTROPHILS % (AUTO) 37.6 % (40.0-70.0); PLATELET COUNT (AUTO) 222 K/uL (150-450); RED BLOOD CELL COUNT(AUTO) 4.91 MIL/uL (4.50-5.90); RED CELL DISTRIBUTION WIDTH 13.6 % (11.5-14.5)
[2018-11-05 00:19] LABS: ANION GAP 10 mmol/L (8-16); CALCIUM, TOTAL 8.6 mg/dL (8.8-10.5); CARBON DIOXIDE 24 mmol/L (22-29); CHLORIDE 106 mmol/L (98-107); CREATININE 1.07 mg/dL (0.60-1.30); GLOMERULAR FILTR. RATE CALC > 60 mL/min (>60); GLUCOSE,RANDOM 123 mg/dL (70-110); POTASSIUM 3.6 mmol/L (3.5-5.1); SODIUM SERUM 140 mmol/L (136-145); UREA NITROGEN, BLOOD 16 mg/dL (7-18)
[2018-11-05 00:30] LABS: ALANINE AMINOTRANSFERASE 25 U/L (12-78); ALBUMIN 3.4 g/dL (3.4-5.0); ALKALINE PHOSPHATASE 69 U/L (46-116); ASPARTATE AMINOTRANSFERASE 19 U/L (15-37); BILIRUBIN,TOTAL 0.2 mg/dL (0.1-1.0); TOTAL PROTEIN, SERUM 6.8 g/dL (6.4-8.2)
[2018-11-05] MEDS ORDERED: LORazepam 2 MG TABLET PO PRN (01:00)
[2018-11-05] MEDS ORDERED: ZOLPIDEM TARTRATE 10 MG TABLET PO PRN (01:00)
[2018-11-05] MEDS ORDERED: HALOPERIDOL 5 MG TABLET PO PRN (01:00)
[2018-11-05 03:00] VITALS: BP 118/75
[2018-11-05] MEDS ORDERED: DOCUSATE SODIUM 100 MG CAPSULE PO PRN (06:45)
[2018-11-05] MEDS ORDERED: MAGNESIUM HYDROXIDE SUSPENSION 30 ML UDCUP PO PRN (06:45)
[2018-11-05] MEDS ORDERED: GuaiFENesin/D-METHORPHAN [SUGAR-FREE] 200-20MG/10 ML SYRUP UDCUP PO PRN (06:45)
[2018-11-05] MEDS ORDERED: ACETAMINOPHEN 325 MG TABLET PO PRN (06:45)
[2018-11-05] MEDS ORDERED: MAG HYDROX/AL HYDROX/SIMETH ES 30 ML SUSPENSION UDCUP PO PRN (06:45)
[2018-11-05] MEDS ORDERED: PETROLATUM,WHITE 28 GM JELLY TP PRN (06:45)
[2018-11-05] MEDS ORDERED: LOPERAMIDE HCL 2 MG CAPSULE PO PRN (06:45)
[2018-11-05] MEDS ORDERED: IBUPROFEN 400 MG TABLET PO PRN (06:45)
[2018-11-05] MEDS ORDERED: ONDANSETRON HCL 4 MG TABLET PO PRN (06:45)
[2018-11-05] MEDS: RisperiDONE 1 MG TABLET PO SCH (20:53)
[2018-11-06] MEDS: RisperiDONE 1 MG TABLET PO SCH ×2 (08:14→20:50)
[2018-11-07] MEDS: RisperiDONE 1 MG TABLET PO SCH (09:00)
== END 2018-11-07 14:40 | disposition home or self-care (01) | DRG 750 ==
LOC: EMS 22:46 → B3A 11-05 02:00
PROVIDERS: ADMIT Psychiatry & Neurology Psychiatry; ATTEND Psychiatry & Neurology Psychiatry
DX: F25.0 Schizoaffective disorder, bipolar type (principal); I95.9 Hypotension, unspecified; Z59.0 Homelessness; E78.5 Hyperlipidemia, unspecified; F10.10 Alcohol abuse, uncomplicated; F12.90 Cannabis use, unspecified, uncomplicated; F17.200 Nicotine dependence, unspecified, uncomplicated; F19.10 Other psychoactive substance abuse, uncomplicated
CPT/HCPCS: G0480

== ENCOUNTER 2019-03-25 19:48 | Inpatient (IN) | payer MEDICAID ==
[~2019-03-25] VITALS: Ht 170.2 cm; Wt 89.4 kg
[2019-03-25] MEDS ORDERED: RISP1 PO (21:01)
[2019-03-25] MEDS ORDERED: ZOLPIDEM TARTRATE 10 MG TABLET PO PRN (21:45)
[2019-03-25] MEDS ORDERED: HALOPERIDOL 5 MG TABLET PO PRN (21:45)
[2019-03-25] MEDS ORDERED: LORazepam 2 MG TABLET PO PRN (21:45)
[2019-03-25 22:19] VITALS: BP 124/85
[2019-03-26 08:00] VITALS: BP 109/64
[2019-03-26] MEDS ORDERED: NICOTINE 14 MG/24 HOUR PATCH TD PRN (10:00)
[2019-03-26] MEDS ORDERED: PETROLATUM,WHITE 28 GM JELLY TP PRN (10:00)
[2019-03-26] MEDS ORDERED: CloNIDine HCL 0.1 MG TABLET PO PRN (10:00)
[2019-03-26] MEDS ORDERED: LOPERAMIDE HCL 2 MG CAPSULE PO PRN (10:00)
[2019-03-26] MEDS ORDERED: GuaiFENesin/D-METHORPHAN [SUGAR-FREE] 200-20MG/10 ML SYRUP UDCUP PO PRN (10:00)
[2019-03-26] MEDS ORDERED: ALBUTEROL SULFATE HFA 90 MCG/PUFF 8 GM INHALER IH PRN (10:00)
[2019-03-26] MEDS ORDERED: MAG HYDROX/AL HYDROX/SIMETH ES 30 ML SUSPENSION UDCUP PO PRN (10:00)
[2019-03-26] MEDS ORDERED: ONDANSETRON HCL 4 MG TABLET PO PRN (10:00)
[2019-03-26] MEDS ORDERED: ACETAMINOPHEN 325 MG TABLET PO PRN (10:00)
[2019-03-26] MEDS ORDERED: MAGNESIUM HYDROXIDE SUSPENSION 30 ML UDCUP PO PRN (10:00)
[2019-03-26] MEDS ORDERED: IBUPROFEN 400 MG TABLET PO PRN (10:00)
[2019-03-26] MEDS ORDERED: DOCUSATE SODIUM 100 MG CAPSULE PO PRN (10:00)
[2019-03-26] MEDS: RisperiDONE 1 MG TABLET PO SCH (16:50)
[2019-03-27 04:50] VITALS: BP 123/78
[2019-03-27] MEDS: RisperiDONE 1 MG TABLET PO SCH ×2 (09:00→16:57)
[2019-03-27] MEDS: VENLAFAXINE HCL 75 MG ER CAPSULE PO SCH (09:00)
[2019-03-28 06:52] VITALS: BP 106/58
[2019-03-28 08:02] VITALS: BP 131/63
[2019-03-28] MEDS: VENLAFAXINE HCL 75 MG ER CAPSULE PO SCH ×2 (09:00→09:14)
[2019-03-28] MEDS: RisperiDONE 1 MG TABLET PO SCH ×3 (09:00→17:07)
[2019-03-28 16:21] VITALS: BP 135/67
[2019-03-29 06:36] VITALS: BP 128/66
[2019-03-29] MEDS: RisperiDONE 1 MG TABLET PO SCH ×2 (09:07→16:54)
[2019-03-29] MEDS: VENLAFAXINE HCL 75 MG ER CAPSULE PO SCH (09:07)
[2019-03-29 17:03] VITALS: BP 105/65
[2019-03-30] MEDS: RisperiDONE 1 MG TABLET PO SCH ×2 (09:30→16:36)
[2019-03-30] MEDS: VENLAFAXINE HCL 75 MG ER CAPSULE PO SCH (09:32)
[2019-03-30 11:02] VITALS: BP 130/71
[2019-03-30 16:08] VITALS: BP 105/65
[2019-03-31 06:53] VITALS: BP 114/72
[2019-03-31 08:10] VITALS: BP 110/68
[2019-03-31] MEDS: RisperiDONE 1 MG TABLET PO SCH (08:40)
[2019-03-31] MEDS: VENLAFAXINE HCL 75 MG ER CAPSULE PO SCH (08:40)
[2019-03-31] MEDS ORDERED: VENL-67 PO (10:52)
== END 2019-03-31 12:00 | disposition home or self-care (01) | DRG 750 ==
LOC: B3A 21:42
PROVIDERS: ADMIT Psychiatry & Neurology Psychiatry; ATTEND Psychiatry & Neurology Psychiatry
DX: F25.0 Schizoaffective disorder, bipolar type (principal); Z59.0 Homelessness; E78.5 Hyperlipidemia, unspecified; E87.6 Hypokalemia; R45.87 Impulsiveness; F15.90 Other stimulant use, unspecified, uncomplicated; F17.200 Nicotine dependence, unspecified, uncomplicated; F41.9 Anxiety disorder, unspecified; I10 Essential (primary) hypertension; Z91.19 Patient's noncompliance with other medical treatment and regimen

== ENCOUNTER 2019-05-15 18:36 | Inpatient (IN) | payer MEDICAID, OTHER ==
[~2019-05-15] VITALS: Ht 175.3 cm; Wt 85.8 kg
[~2019-05-15 18:36] MED LIST changes: +VENL-67 PO
[2019-05-15 20:32] LABS: EOSINOPHILS % (AUTO) 3.4 % (1.0-6.0); HEMATOCRIT 42.3 % (41-53); HEMOGLOBIN 13.9 g/dL (13.5-17.5); LYMPHOCYTES # (AUTO) 1.7 K/uL (1.0-4.8); LYMPHOCYTES % (AUTO) 38.7 % (22.0-44.0); MEAN CORPUSCULAR HEMOGLOBIN 27.4 pg (26.0-34.0); MEAN CORPUSCULAR HGB CONC 32.8 G/dL (31.0-37.0); MEAN CORPUSCULAR VOLUME 84 fL (80-100); MONOCYTES # (AUTO) 0.9 K/uL (0.1-1.0); NEUTROPHILS # (AUTO) 1.6 K/uL (1.8-7.7); NEUTROPHILS % (AUTO) 36.7 % (40.0-70.0); PLATELET COUNT (AUTO) 178 K/uL (150-450); RED BLOOD CELL COUNT(AUTO) 5.06 MIL/uL (4.50-5.90); RED CELL DISTRIBUTION WIDTH 13.5 % (11.5-14.5)
[2019-05-15 20:47] LABS: ANION GAP 8 mmol/L (8-16); CALCIUM, TOTAL 8.4 mg/dL (8.8-10.5); CARBON DIOXIDE 27 mmol/L (22-29); CHLORIDE 107 mmol/L (98-107); CREATININE 1.03 mg/dL (0.60-1.30); GLOMERULAR FILTR. RATE CALC > 60 mL/min (>60); GLUCOSE,RANDOM 94 mg/dL (70-110); POTASSIUM 3.8 mmol/L (3.5-5.1); SODIUM SERUM 142 mmol/L (136-145); UREA NITROGEN, BLOOD 12 mg/dL (7-18)
[2019-05-15 20:54] LABS: ALANINE AMINOTRANSFERASE 14 U/L (12-78); ALBUMIN 3.6 g/dL (3.4-5.0); ALKALINE PHOSPHATASE 68 U/L (46-116); ASPARTATE AMINOTRANSFERASE 18 U/L (15-37); BILIRUBIN,TOTAL 0.2 mg/dL (0.1-1.0); TOTAL PROTEIN, SERUM 7.1 g/dL (6.4-8.2)
[2019-05-15] MEDS ORDERED: GuaiFENesin/D-METHORPHAN [SUGAR-FREE] 200-20MG/10 ML SYRUP UDCUP PO PRN (21:15)
[2019-05-15] MEDS ORDERED: DOCUSATE SODIUM 100 MG CAPSULE PO PRN (21:15)
[2019-05-15] MEDS ORDERED: NICOTINE 14 MG/24 HOUR PATCH TD PRN (21:15)
[2019-05-15] MEDS ORDERED: LOPERAMIDE HCL 2 MG CAPSULE PO PRN (21:15)
[2019-05-15] MEDS ORDERED: ACETAMINOPHEN 325 MG TABLET PO PRN (21:15)
[2019-05-15] MEDS ORDERED: PETROLATUM,WHITE 28 GM JELLY TP PRN (21:15)
[2019-05-15] MEDS ORDERED: ALBUTEROL SULFATE HFA 90 MCG/PUFF 8 GM INHALER IH PRN (21:15)
[2019-05-15] MEDS ORDERED: CloNIDine HCL 0.1 MG TABLET PO PRN (21:15)
[2019-05-15] MEDS ORDERED: MAGNESIUM HYDROXIDE SUSPENSION 30 ML UDCUP PO PRN (21:15)
[2019-05-15] MEDS ORDERED: MAG HYDROX/AL HYDROX/SIMETH ES 30 ML SUSPENSION UDCUP PO PRN (21:15)
[2019-05-15] MEDS ORDERED: ONDANSETRON HCL 4 MG TABLET PO PRN (21:15)
[2019-05-15 21:19] LABS: MONOCYTES % (AUTO) 20.2 % (2.0-9.0)
[2019-05-16] MEDS: ZOLPIDEM TARTRATE 10 MG TABLET PO PRN (00:19)
[2019-05-16 00:20] VITALS: BP 99/56
[2019-05-16] MEDS: IBUPROFEN 400 MG TABLET PO PRN ×2 (00:20→12:04)
[2019-05-16 01:10] VITALS: BP 99/56
[2019-05-16] MEDS: INFLUENZA VIRUS VACCINE QVS 2019-20 (3YR+)/PF 60 MCG/0.5 ML SYRINGE IM ONE ×2 (01:45→11:26)
[2019-05-16] MEDS: PNEUMOCOCCAL VACCINE POLYVALENT 0.5 ML VIAL [PPSV23] IM ONE ×2 (01:45→11:24)
[2019-05-16 06:40] LABS: BASOPHILS % (AUTO) 0.7 % (0.0-2.0); EOSINOPHILS % (AUTO) 4.6 % (1.0-6.0); HEMATOCRIT 39.9 % (41-53); HEMOGLOBIN 13.1 g/dL (13.5-17.5); LYMPHOCYTES # (AUTO) 1.6 K/uL (1.0-4.8); LYMPHOCYTES % (AUTO) 48.3 % (22.0-44.0); MEAN CORPUSCULAR HEMOGLOBIN 27.2 pg (26.0-34.0); MEAN CORPUSCULAR HGB CONC 32.9 G/dL (31.0-37.0); MEAN CORPUSCULAR VOLUME 83 fL (80-100); MONOCYTES # (AUTO) 0.7 K/uL (0.1-1.0); MONOCYTES % (AUTO) 21.1 % (2.0-9.0); NEUTROPHILS # (AUTO) 0.8 K/uL (1.8-7.7); NEUTROPHILS % (AUTO) 25.3 % (40.0-70.0); PLATELET COUNT (AUTO) 156 K/uL (150-450); RED BLOOD CELL COUNT(AUTO) 4.82 MIL/uL (4.50-5.90); RED CELL DISTRIBUTION WIDTH 13.3 % (11.5-14.5)
[2019-05-16 07:05] LABS: ALANINE AMINOTRANSFERASE 15 U/L (12-78); ALBUMIN 3.1 g/dL (3.4-5.0); ALKALINE PHOSPHATASE 57 U/L (46-116); ANION GAP 8 mmol/L (8-16); ASPARTATE AMINOTRANSFERASE 14 U/L (15-37); BILIRUBIN,TOTAL 0.2 mg/dL (0.1-1.0); CARBON DIOXIDE 27 mmol/L (22-29); CHLORIDE 106 mmol/L (98-107); CHOL/HDL RATIO 6.7 (4.2-7.3); CHOLESTEROL 194 mg/dL (131-200); CREATININE 0.89 mg/dL (0.60-1.30); GLOMERULAR FILTR. RATE CALC > 60 mL/min (>60); GLUCOSE,RANDOM 98 mg/dL (70-110); HDL CHOLESTEROL 29 mg/dL (40-60); LDL CHOL (CALC.) 143 mg/dL (0-130); POTASSIUM 3.5 mmol/L (3.5-5.1); SODIUM SERUM 141 mmol/L (136-145); TOTAL PROTEIN, SERUM 6.2 g/dL (6.4-8.2); TRIGLYCERIDES 108 mg/dL (15-150); UREA NITROGEN, BLOOD 8 mg/dL (7-18)
[2019-05-16] MEDS: RisperiDONE 1 MG TABLET PO SCH ×3 (11:28→17:08)
[2019-05-16] MEDS: VENLAFAXINE HCL 75 MG ER CAPSULE PO SCH (11:28)
[2019-05-16] MEDS: LORazepam 2 MG TABLET PO PRN (12:04)
[2019-05-16] MEDS: HALOPERIDOL 5 MG TABLET PO PRN (12:05)
[2019-05-17] MEDS: RisperiDONE 1 MG TABLET PO SCH ×2 (08:31→16:09)
[2019-05-17] MEDS: VENLAFAXINE HCL 75 MG ER CAPSULE PO SCH (08:31)
[2019-05-17 09:46] VITALS: BP 108/55
[2019-05-17 19:21] VITALS: BP 110/68
[2019-05-18] MEDS: VENLAFAXINE HCL 75 MG ER CAPSULE PO SCH (09:01)
[2019-05-18] MEDS: RisperiDONE 1 MG TABLET PO SCH ×2 (09:01→16:34)
[2019-05-18 10:11] VITALS: BP 101/57
[2019-05-18 16:30] VITALS: BP 124/68
[2019-05-19 08:31] VITALS: BP 99/59
[2019-05-19] MEDS: RisperiDONE 1 MG TABLET PO SCH ×2 (10:16→16:17)
[2019-05-19] MEDS: VENLAFAXINE HCL 75 MG ER CAPSULE PO SCH (10:16)
[2019-05-19 16:00] VITALS: BP 100/71
[2019-05-20 08:00] VITALS: BP 139/71
[2019-05-20] MEDS: VENLAFAXINE HCL 75 MG ER CAPSULE PO SCH (09:27)
[2019-05-20] MEDS: RisperiDONE 1 MG TABLET PO SCH ×2 (09:27→16:40)
[2019-05-20 17:36] VITALS: BP 107/65
[2019-05-21 08:00] VITALS: BP 136/68
[2019-05-21] MEDS: VENLAFAXINE HCL 75 MG ER CAPSULE PO SCH (09:56)
[2019-05-21] MEDS: RisperiDONE 1 MG TABLET PO SCH ×2 (09:56→16:49)
[2019-05-21 19:41] VITALS: BP 104/52
[2019-05-22 08:00] VITALS: BP 102/60
[2019-05-22] MEDS: RisperiDONE 1 MG TABLET PO SCH ×2 (09:41→16:43)
[2019-05-22] MEDS: VENLAFAXINE HCL 75 MG ER CAPSULE PO SCH (09:41)
[2019-05-22 17:52] VITALS: BP 116/62
[2019-05-23 08:47] VITALS: BP 98/55
[2019-05-23] MEDS: VENLAFAXINE HCL 75 MG ER CAPSULE PO SCH (09:43)
[2019-05-23] MEDS: RisperiDONE 1 MG TABLET PO SCH ×2 (09:43→16:07)
[2019-05-23 17:00] VITALS: BP 94/62
[2019-05-23 18:29] LABS: HEMATOCRIT 39.3 % (41-53); HEMOGLOBIN 13.1 g/dL (13.5-17.5); LYMPHOCYTES # (AUTO) 2.4 K/uL (1.0-4.8); LYMPHOCYTES % (AUTO) 32.9 % (22.0-44.0); MEAN CORPUSCULAR HEMOGLOBIN 27.5 pg (26.0-34.0); MEAN CORPUSCULAR HGB CONC 33.2 G/dL (31.0-37.0); MEAN CORPUSCULAR VOLUME 83 fL (80-100); MONOCYTES # (AUTO) 0.8 K/uL (0.1-1.0); MONOCYTES % (AUTO) 11.1 % (2.0-9.0); NEUTROPHILS # (AUTO) 3.9 K/uL (1.8-7.7); PLATELET COUNT (AUTO) 152 K/uL (150-450); RED BLOOD CELL COUNT(AUTO) 4.75 MIL/uL (4.50-5.90); RED CELL DISTRIBUTION WIDTH 13.5 % (11.5-14.5)
[2019-05-23] MEDS: ZOLPIDEM TARTRATE 10 MG TABLET PO PRN (20:25)
[2019-05-24 08:26] VITALS: BP 122/75
[2019-05-24] MEDS: RisperiDONE 1 MG TABLET PO SCH ×2 (09:23→15:57)
[2019-05-24] MEDS: VENLAFAXINE HCL 75 MG ER CAPSULE PO SCH (09:23)
[2019-05-24 19:02] VITALS: BP 109/69
[2019-05-25 09:39] VITALS: BP 147/92
[2019-05-25] MEDS: RisperiDONE 1 MG TABLET PO SCH ×2 (09:44→16:28)
[2019-05-25] MEDS: VENLAFAXINE HCL 75 MG ER CAPSULE PO SCH (09:44)
[2019-05-25] MEDS: LORazepam 2 MG TABLET PO PRN (13:26)
[2019-05-25] MEDS: HALOPERIDOL 5 MG TABLET PO PRN (13:26)
[2019-05-25] MEDS: IBUPROFEN 400 MG TABLET PO PRN (15:43)
== END 2019-05-25 16:00 | disposition still patient (30) | DRG 750 ==
LOC: EMS 18:40 → 3EI 23:00
PROVIDERS: ADMIT Psychiatry & Neurology Psychiatry; ATTEND Psychiatry & Neurology Psychiatry
DX: F25.1 Schizoaffective disorder, depressive type (principal); I95.9 Hypotension, unspecified; R45.851 Suicidal ideations; D72.819 Decreased white blood cell count, unspecified; E78.5 Hyperlipidemia, unspecified; F19.10 Other psychoactive substance abuse, uncomplicated; F10.10 Alcohol abuse, uncomplicated; F41.9 Anxiety disorder, unspecified; I10 Essential (primary) hypertension; F17.210 Nicotine dependence, cigarettes, uncomplicated; Z28.21 Immunization not carried out because of patient refusal; Z79.899 Other long term (current) drug therapy; Z71.51 Drug abuse counseling and surveillance of drug abuser; Z71.41 Alcohol abuse counseling and surveillance of alcoholic
CPT/HCPCS: 83036; 84443; 87081; 90686; 90732; 93005; G0480

== ENCOUNTER 2019-06-10 10:01 | Inpatient (IN) | payer MEDICAID, OTHER ==
[~2019-06-10] VITALS: Ht 170.2 cm; Wt 86.2 kg
[2019-06-10] MEDS ORDERED: RisperiDONE 1 MG TABLET PO ONE (11:15)
[2019-06-10] MEDS ORDERED: LORazepam 2 MG TABLET PO ONE (11:30)
[2019-06-10] MEDS ORDERED: HALOPERIDOL 5 MG TABLET PO PRN (14:00)
[2019-06-10] MEDS ORDERED: ZOLPIDEM TARTRATE 10 MG TABLET PO PRN (14:00)
[2019-06-10] MEDS ORDERED: LORazepam 2 MG TABLET PO PRN (14:00)
[2019-06-10 14:14] LABS: BASOPHILS % (AUTO) 0.7 % (0.0-2.0); EOSINOPHILS % (AUTO) 3.2 % (1.0-6.0); HEMATOCRIT 40.1 % (41-53); HEMOGLOBIN 13.1 g/dL (13.5-17.5); LYMPHOCYTES # (AUTO) 2.2 K/uL (1.0-4.8); LYMPHOCYTES % (AUTO) 37.6 % (22.0-44.0); MEAN CORPUSCULAR HEMOGLOBIN 27.4 pg (26.0-34.0); MEAN CORPUSCULAR HGB CONC 32.8 G/dL (31.0-37.0); MEAN CORPUSCULAR VOLUME 84 fL (80-100); MONOCYTES # (AUTO) 0.7 K/uL (0.1-1.0); MONOCYTES % (AUTO) 11.2 % (2.0-9.0); NEUTROPHILS # (AUTO) 2.8 K/uL (1.8-7.7); NEUTROPHILS % (AUTO) 47.3 % (40.0-70.0); PLATELET COUNT (AUTO) 214 K/uL (150-450); RED CELL DISTRIBUTION WIDTH 14.2 % (11.5-14.5)
[2019-06-10 14:31] LABS: ANION GAP 8 mmol/L (8-16); CALCIUM, TOTAL 9.1 mg/dL (8.8-10.5); CARBON DIOXIDE 26 mmol/L (22-29); CHLORIDE 106 mmol/L (98-107); CREATININE 0.95 mg/dL (0.60-1.30); GLOMERULAR FILTR. RATE CALC > 60 mL/min (>60); GLUCOSE,RANDOM 116 mg/dL (70-110); POTASSIUM 4.2 mmol/L (3.5-5.1); SODIUM SERUM 140 mmol/L (136-145); UREA NITROGEN, BLOOD 12 mg/dL (7-18)
[2019-06-10 14:42] LABS: ALANINE AMINOTRANSFERASE 18 U/L (12-78); ALBUMIN 3.2 g/dL (3.4-5.0); ALKALINE PHOSPHATASE 73 U/L (46-116); ASPARTATE AMINOTRANSFERASE 12 U/L (15-37); BILIRUBIN,TOTAL 0.2 mg/dL (0.1-1.0); TOTAL PROTEIN, SERUM 6.7 g/dL (6.4-8.2)
[2019-06-10] MEDS: RisperiDONE 1 MG TABLET PO SCH ×2 (16:28→18:13)
[2019-06-10 17:58] VITALS: BP 116/85
[2019-06-11] MEDS ORDERED: MAGNESIUM HYDROXIDE SUSPENSION 30 ML UDCUP PO PRN (06:30)
[2019-06-11] MEDS ORDERED: ACETAMINOPHEN 325 MG TABLET PO PRN (06:30)
[2019-06-11] MEDS ORDERED: NICOTINE 14 MG/24 HOUR PATCH TD PRN (06:30)
[2019-06-11] MEDS ORDERED: GuaiFENesin/D-METHORPHAN [SUGAR-FREE] 200-20MG/10 ML SYRUP UDCUP PO PRN (06:30)
[2019-06-11] MEDS ORDERED: ONDANSETRON HCL 4 MG TABLET PO PRN (06:30)
[2019-06-11] MEDS ORDERED: DOCUSATE SODIUM 100 MG CAPSULE PO PRN (06:30)
[2019-06-11] MEDS ORDERED: CloNIDine HCL 0.1 MG TABLET PO PRN (06:30)
[2019-06-11] MEDS ORDERED: PETROLATUM,WHITE 28 GM JELLY TP PRN (06:30)
[2019-06-11] MEDS ORDERED: IBUPROFEN 400 MG TABLET PO PRN (06:30)
[2019-06-11] MEDS ORDERED: LOPERAMIDE HCL 2 MG CAPSULE PO PRN (06:30)
[2019-06-11] MEDS ORDERED: MAG HYDROX/AL HYDROX/SIMETH ES 30 ML SUSPENSION UDCUP PO PRN (06:30)
[2019-06-11] MEDS ORDERED: ALBUTEROL SULFATE HFA 90 MCG/PUFF 8 GM INHALER IH PRN (06:30)
[2019-06-11] MEDS: VENLAFAXINE HCL 75 MG ER CAPSULE PO SCH (08:49)
[2019-06-11] MEDS: RisperiDONE 1 MG TABLET PO SCH ×3 (08:49→17:13)
[2019-06-11 10:25] VITALS: BP 136/78
[2019-06-12 09:28] VITALS: BP 112/66
[2019-06-12] MEDS: RisperiDONE 1 MG TABLET PO SCH ×2 (10:02→16:12)
[2019-06-12] MEDS: VENLAFAXINE HCL 75 MG ER CAPSULE PO SCH (10:02)
[2019-06-13] MEDS: RisperiDONE 1 MG TABLET PO SCH (08:21)
[2019-06-13] MEDS: VENLAFAXINE HCL 75 MG ER CAPSULE PO SCH (08:21)
[2019-06-13 08:35] VITALS: BP 98/53
[2019-06-13] MEDS: RisperiDONE 2 MG TABLET PO SCH (16:40)
[2019-06-13 18:33] VITALS: BP 114/68
[2019-06-14] MEDS: RisperiDONE 2 MG TABLET PO SCH (08:19)
[2019-06-14] MEDS: VENLAFAXINE HCL 75 MG ER CAPSULE PO SCH (08:19)
[2019-06-14 08:35] VITALS: BP 126/71
[2019-06-14] MEDS ORDERED: RISP2TAB76 PO (12:07)
== END 2019-06-14 13:45 | disposition home or self-care (01) | DRG 885 ==
LOC: EMS 10:03 → 3EC 15:08
PROVIDERS: ADMIT Psychiatry & Neurology Psychiatry; ATTEND Psychiatry & Neurology Psychiatry
DX: F25.1 Schizoaffective disorder, depressive type (principal); R45.851 Suicidal ideations; F15.90 Other stimulant use, unspecified, uncomplicated; F12.90 Cannabis use, unspecified, uncomplicated; E78.5 Hyperlipidemia, unspecified; Z59.0 Homelessness; Z91.19 Patient's noncompliance with other medical treatment and regimen; D64.9 Anemia, unspecified; F17.200 Nicotine dependence, unspecified, uncomplicated; F41.9 Anxiety disorder, unspecified; K21.9 Gastro-esophageal reflux disease without esophagitis; F14.90 Cocaine use, unspecified, uncomplicated
CPT/HCPCS: 87081; G0480

== ENCOUNTER 2019-06-18 14:54 | Emergency (ER) | payer MEDICAID, OTHER ==
[~2019-06-18] VITALS: Ht 172.7 cm; Wt 77.3 kg
[~2019-06-18 14:54] MED LIST changes: -RISP1 PO; +RISP2TAB76 PO
[2019-06-18 16:26] LABS: BASOPHILS % (AUTO) 0.9 % (0.0-2.0); EOSINOPHILS % (AUTO) 4.5 % (1.0-6.0); HEMATOCRIT 43.3 % (41-53); HEMOGLOBIN 14.4 g/dL (13.5-17.5); LYMPHOCYTES # (AUTO) 2.6 K/uL (1.0-4.8); LYMPHOCYTES % (AUTO) 38.3 % (22.0-44.0); MEAN CORPUSCULAR HEMOGLOBIN 27.9 pg (26.0-34.0); MEAN CORPUSCULAR HGB CONC 33.2 G/dL (31.0-37.0); MEAN CORPUSCULAR VOLUME 84 fL (80-100); MONOCYTES # (AUTO) 0.9 K/uL (0.1-1.0); MONOCYTES % (AUTO) 12.6 % (2.0-9.0); NEUTROPHILS % (AUTO) 43.7 % (40.0-70.0); PLATELET COUNT (AUTO) 193 K/uL (150-450); RED BLOOD CELL COUNT(AUTO) 5.15 MIL/uL (4.50-5.90); RED CELL DISTRIBUTION WIDTH 14.5 % (11.5-14.5)
[2019-06-18 16:42] LABS: ANION GAP 10 mmol/L (8-16); CALCIUM, TOTAL 9.3 mg/dL (8.8-10.5); CARBON DIOXIDE 28 mmol/L (22-29); CHLORIDE 104 mmol/L (98-107); CREATININE 0.79 mg/dL (0.60-1.30); GLOMERULAR FILTR. RATE CALC > 60 mL/min (>60); GLUCOSE,RANDOM 116 mg/dL (70-110); POTASSIUM 3.8 mmol/L (3.5-5.1); SODIUM SERUM 142 mmol/L (136-145); UREA NITROGEN, BLOOD 9 mg/dL (7-18)
[2019-06-18 16:48] LABS: ALANINE AMINOTRANSFERASE 21 U/L (12-78); ALBUMIN 4.1 g/dL (3.4-5.0); ALKALINE PHOSPHATASE 86 U/L (46-116); ASPARTATE AMINOTRANSFERASE 24 U/L (15-37); BILIRUBIN,TOTAL 0.9 mg/dL (0.1-1.0); TOTAL PROTEIN, SERUM 7.7 g/dL (6.4-8.2)
[2019-06-18 16:57] VITALS: BP 135/84
[2019-06-18] MEDS ORDERED: ACETAMINOPHEN 500 MG TABLET PO ONE (19:00)
[2019-06-18] MEDS ORDERED: RisperiDONE 1 MG TABLET PO ONE (19:15)
== END 2019-06-18 20:36 | disposition home or self-care (01) ==
LOC: EMS 14:57
DX: F41.9 Anxiety disorder, unspecified (principal); F17.210 Nicotine dependence, cigarettes, uncomplicated; F20.9 Schizophrenia, unspecified; Z91.14 Patient's other noncompliance with medication regimen; F10.20 Alcohol dependence, uncomplicated; F32.9 Major depressive disorder, single episode, unspecified; F12.90 Cannabis use, unspecified, uncomplicated; F15.90 Other stimulant use, unspecified, uncomplicated; Z59.0 Homelessness; Z79.899 Other long term (current) drug therapy
CPT/HCPCS: 36415; 80053; 85025; 99284; 99406; G0480

== ENCOUNTER 2019-07-31 08:49 | Emergency (ER) | payer MEDICAID, OTHER ==
[~2019-07-31] VITALS: Ht 180.3 cm; Wt 86.4 kg
[~2019-07-31 08:49] MED LIST changes: +MULT-1239 PO
[2019-07-31] MEDS ORDERED: DOXYCYCLINE HYCLATE 100 MG CAPSULE PO ONE (09:00)
[2019-07-31 09:18] LABS: BASOPHILS % (AUTO) 1.3 % (0.0-2.0); EOSINOPHILS % (AUTO) 7.2 % (1.0-6.0); HEMATOCRIT 39.8 % (41-53); HEMOGLOBIN 13.3 g/dL (13.5-17.5); LYMPHOCYTES # (AUTO) 1.2 K/uL (1.0-4.8); LYMPHOCYTES % (AUTO) 31.2 % (22.0-44.0); MEAN CORPUSCULAR HEMOGLOBIN 27.9 pg (26.0-34.0); MEAN CORPUSCULAR HGB CONC 33.3 G/dL (31.0-37.0); MEAN CORPUSCULAR VOLUME 84 fL (80-100); MONOCYTES # (AUTO) 0.7 K/uL (0.1-1.0); MONOCYTES % (AUTO) 17.8 % (2.0-9.0); NEUTROPHILS # (AUTO) 1.7 K/uL (1.8-7.7); NEUTROPHILS % (AUTO) 42.5 % (40.0-70.0); PLATELET COUNT (AUTO) 179 K/uL (150-450); RED BLOOD CELL COUNT(AUTO) 4.75 MIL/uL (4.50-5.90); RED CELL DISTRIBUTION WIDTH 13.9 % (11.5-14.5)
[2019-07-31 09:26] LABS: ANION GAP 8 mmol/L (8-16); CALCIUM, TOTAL 8.2 mg/dL (8.8-10.5); CARBON DIOXIDE 27 mmol/L (22-29); CHLORIDE 103 mmol/L (98-107); CREATININE 0.88 mg/dL (0.60-1.30); GLOMERULAR FILTR. RATE CALC > 60 mL/min (>60); GLUCOSE,RANDOM 135 mg/dL (70-110); POTASSIUM 3.1 mmol/L (3.5-5.1); SODIUM SERUM 138 mmol/L (136-145); UREA NITROGEN, BLOOD 7 mg/dL (7-18)
[2019-07-31 09:37] LABS: ALANINE AMINOTRANSFERASE 20 U/L (12-78); ALBUMIN 3.1 g/dL (3.4-5.0); ALKALINE PHOSPHATASE 90 U/L (46-116); ASPARTATE AMINOTRANSFERASE 24 U/L (15-37); BILIRUBIN,TOTAL 0.2 mg/dL (0.1-1.0); TOTAL PROTEIN, SERUM 6.9 g/dL (6.4-8.2)
[2019-07-31] MEDS ORDERED: POTASSIUM CHLORIDE 20 MEQ ER TABLET PO ONE (12:15)
[2019-07-31 14:07] VITALS: BP 100/67
== END 2019-07-31 14:37 | disposition home or self-care (01) ==
LOC: EMS 08:51
DX: F25.9 Schizoaffective disorder, unspecified (principal); F32.9 Major depressive disorder, single episode, unspecified; L03.115 Cellulitis of right lower limb; F17.210 Nicotine dependence, cigarettes, uncomplicated; F12.90 Cannabis use, unspecified, uncomplicated; F19.90 Other psychoactive substance use, unspecified, uncomplicated
CPT/HCPCS: 36415; 80053; 85025; 99284; 99406; G0480

== ENCOUNTER 2019-08-03 22:54 | Inpatient (IN) | payer MEDICAID, OTHER ==
[~2019-08-03] VITALS: Ht 170.2 cm; Wt 79.8 kg
[2019-08-04 00:42] LABS: BASOPHILS % (AUTO) 0.7 % (0.0-2.0); EOSINOPHILS % (AUTO) 1.8 % (1.0-6.0); HEMATOCRIT 40.1 % (41-53); HEMOGLOBIN 13.4 g/dL (13.5-17.5); LYMPHOCYTES # (AUTO) 1.8 K/uL (1.0-4.8); LYMPHOCYTES % (AUTO) 24.3 % (22.0-44.0); MEAN CORPUSCULAR HGB CONC 33.5 G/dL (31.0-37.0); MEAN CORPUSCULAR VOLUME 84 fL (80-100); MONOCYTES # (AUTO) 0.7 K/uL (0.1-1.0); MONOCYTES % (AUTO) 8.9 % (2.0-9.0); NEUTROPHILS # (AUTO) 4.9 K/uL (1.8-7.7); NEUTROPHILS % (AUTO) 64.3 % (40.0-70.0); PLATELET COUNT (AUTO) 206 K/uL (150-450); RED CELL DISTRIBUTION WIDTH 13.9 % (11.5-14.5)
[2019-08-04 00:50] LABS: ANION GAP 8 mmol/L (8-16); CALCIUM, TOTAL 9.3 mg/dL (8.8-10.5); CARBON DIOXIDE 29 mmol/L (22-29); CHLORIDE 102 mmol/L (98-107); CREATININE 0.86 mg/dL (0.60-1.30); GLOMERULAR FILTR. RATE CALC > 60 mL/min (>60); GLUCOSE,RANDOM 114 mg/dL (70-110); POTASSIUM 3.7 mmol/L (3.5-5.1); SODIUM SERUM 139 mmol/L (136-145); UREA NITROGEN, BLOOD 11 mg/dL (7-18)
[2019-08-04 00:56] LABS: ALANINE AMINOTRANSFERASE 24 U/L (12-78); ALBUMIN 3.7 g/dL (3.4-5.0); ALKALINE PHOSPHATASE 98 U/L (46-116); ASPARTATE AMINOTRANSFERASE 18 U/L (15-37); BILIRUBIN,TOTAL 0.4 mg/dL (0.1-1.0); TOTAL PROTEIN, SERUM 7.5 g/dL (6.4-8.2)
[2019-08-04 01:32] LABS: AMPHET/METH SCREEN,URINE POSITIVE (NEGATIVE); BARBITURATE SCREEN, URINE NEGATIVE (NEGATIVE); BENZODIAZEPINES SCREEN,URINE NEGATIVE (NEGATIVE); CANNABINOID SCREEN,URINE NEGATIVE (NEGATIVE); COCAINE SCREEN,URINE NEGATIVE (NEGATIVE); METHADONE SCREEN, URINE NEGATIVE (NEGATIVE); OPIATE SCREEN,URINE NEGATIVE (NEGATIVE)
[2019-08-04 01:34] LABS: PHENCYCLIDINE SCREEN,URINE NEGATIVE (NEGATIVE)
[2019-08-04] MEDS ORDERED: HALOPERIDOL 5 MG TABLET PO PRN (04:00)
[2019-08-04] MEDS ORDERED: LORazepam 2 MG TABLET PO PRN (04:00)
[2019-08-04] MEDS ORDERED: ZOLPIDEM TARTRATE 10 MG TABLET PO PRN (04:00)
[2019-08-04 09:25] VITALS: BP 121/89
[2019-08-04] MEDS ORDERED: PNEUMOCOCCAL VACCINE POLYVALENT 0.5 ML VIAL [PPSV23] IM ONE (11:00)
[2019-08-04] MEDS ORDERED: INFLUENZA VIRUS VACCINE QVS 2019-20 (3YR+)/PF 60 MCG/0.5 ML SYRINGE IM ONE (11:00)
[2019-08-04] MEDS: RisperiDONE 2 MG TABLET PO SCH (17:36)
[2019-08-05 00:28] VITALS: BP 110/73
[2019-08-05] MEDS: RisperiDONE 2 MG TABLET PO SCH (08:51)
[2019-08-05] MEDS: SULFAMETHOX/TRIMETH DS 800-160 MG/TABLET PO SCH ×2 (08:51→16:10)
[2019-08-05] MEDS: VENLAFAXINE HCL 75 MG ER CAPSULE PO SCH (08:51)
[2019-08-05] MEDS: BACITRACIN 28.4 GM OINTMENT TP SCH ×2 (08:51→16:14)
[2019-08-05] MEDS: CEPHALEXIN MONOHYDRATE 500 MG CAPSULE PO SCH ×4 (08:51→20:32)
[2019-08-05] MEDS: RisperiDONE 3 MG TABLET PO SCH (16:10)
[2019-08-06 07:13] VITALS: BP 106/71
[2019-08-06] MEDS: RisperiDONE 3 MG TABLET PO SCH ×2 (09:06→16:51)
[2019-08-06] MEDS: VENLAFAXINE HCL 75 MG ER CAPSULE PO SCH (09:06)
[2019-08-06] MEDS: CEPHALEXIN MONOHYDRATE 500 MG CAPSULE PO SCH ×4 (09:06→20:37)
[2019-08-06] MEDS: SULFAMETHOX/TRIMETH DS 800-160 MG/TABLET PO SCH ×2 (09:06→16:51)
[2019-08-06] MEDS: BACITRACIN 28.4 GM OINTMENT TP SCH ×2 (09:06→16:56)
[2019-08-07] MEDS: SULFAMETHOX/TRIMETH DS 800-160 MG/TABLET PO SCH ×2 (08:41→17:34)
[2019-08-07] MEDS: CEPHALEXIN MONOHYDRATE 500 MG CAPSULE PO SCH ×4 (08:41→20:39)
[2019-08-07] MEDS: BACITRACIN 28.4 GM OINTMENT TP SCH ×2 (08:42→17:34)
[2019-08-07] MEDS: VENLAFAXINE HCL 75 MG ER CAPSULE PO SCH (08:42)
[2019-08-07] MEDS: RisperiDONE 3 MG TABLET PO SCH ×2 (08:42→17:34)
[2019-08-07 08:50] VITALS: BP 115/64
[2019-08-07 19:32] VITALS: BP 100/61
[2019-08-08 08:55] VITALS: BP 109/68
[2019-08-08] MEDS: RisperiDONE 3 MG TABLET PO SCH ×2 (08:55→17:01)
[2019-08-08] MEDS: VENLAFAXINE HCL 75 MG ER CAPSULE PO SCH (08:55)
[2019-08-08] MEDS: CEPHALEXIN MONOHYDRATE 500 MG CAPSULE PO SCH ×4 (08:55→20:22)
[2019-08-08] MEDS: SULFAMETHOX/TRIMETH DS 800-160 MG/TABLET PO SCH ×2 (08:55→17:01)
[2019-08-08] MEDS: BACITRACIN 28.4 GM OINTMENT TP SCH ×2 (08:55→17:01)
[2019-08-08 16:10] VITALS: BP 97/51
[2019-08-09] MEDS: VENLAFAXINE HCL 75 MG ER CAPSULE PO SCH (09:32)
[2019-08-09] MEDS: CEPHALEXIN MONOHYDRATE 500 MG CAPSULE PO SCH ×4 (09:32→21:44)
[2019-08-09] MEDS: RisperiDONE 3 MG TABLET PO SCH ×2 (09:32→17:45)
[2019-08-09] MEDS: SULFAMETHOX/TRIMETH DS 800-160 MG/TABLET PO SCH ×2 (09:33→17:45)
[2019-08-09] MEDS: BACITRACIN 28.4 GM OINTMENT TP SCH ×2 (09:33→17:46)
[2019-08-09 17:26] VITALS: BP 114/60
[2019-08-10 06:07] VITALS: BP 112/62
[2019-08-10 08:24] VITALS: BP 117/68
[2019-08-10] MEDS: CEPHALEXIN MONOHYDRATE 500 MG CAPSULE PO SCH (08:25)
[2019-08-10] MEDS: VENLAFAXINE HCL 75 MG ER CAPSULE PO SCH (08:26)
[2019-08-10] MEDS: RisperiDONE 3 MG TABLET PO SCH (08:26)
[2019-08-10] MEDS: SULFAMETHOX/TRIMETH DS 800-160 MG/TABLET PO SCH (08:26)
[2019-08-10 08:33] LABS: HEMOGLOBIN A1C 5.8 % (4.5-6.2)
[2019-08-10 09:11] LABS: CHOL/HDL RATIO 6.5 (4.2-7.3); THYROID STIMULATING HORMONE 1.77 uIU/mL (0.36-3.74)
[2019-08-10] MEDS ORDERED: RISP3 PO (09:21)
[2019-08-10] MEDS ORDERED: SULF1TAB42 PO (09:21)
[2019-08-10] MEDS ORDERED: CEPH-582 PO (09:21)
[2019-08-10] MEDS ORDERED: VENL-67 PO (09:21)
== END 2019-08-10 10:40 | disposition home or self-care (01) | DRG 750 ==
LOC: EMS 22:55 → B2S 08-04 04:30 → EMS 08-04 05:29
PROVIDERS: ADMIT Psychiatry & Neurology Psychiatry; ATTEND Psychiatry & Neurology Psychiatry
DX: F25.1 Schizoaffective disorder, depressive type (principal); Z59.0 Homelessness; R45.851 Suicidal ideations; D64.9 Anemia, unspecified; E78.5 Hyperlipidemia, unspecified; E87.6 Hypokalemia; F15.90 Other stimulant use, unspecified, uncomplicated; R45.87 Impulsiveness; F41.9 Anxiety disorder, unspecified; I10 Essential (primary) hypertension; L03.119 Cellulitis of unspecified part of limb; Z79.899 Other long term (current) drug therapy; Z91.14 Patient's other noncompliance with medication regimen
CPT/HCPCS: 80074; 83036; 84443; 87081; G0480

== ENCOUNTER 2019-09-03 18:13 | Inpatient (IN) | payer MEDICAID, OTHER ==
[~2019-09-03] VITALS: Ht 172.7 cm; Wt 81.8 kg
[~2019-09-03 18:13] MED LIST changes: +CEPH-582 PO; -MULT-1239 PO; -RISP2TAB76 PO; +RISP3 PO; +SULF1TAB42 PO
[2019-09-03 19:10] LABS: BASOPHILS % (AUTO) 0.7 % (0.0-2.0); EOSINOPHILS % (AUTO) 2.3 % (1.0-6.0); HEMATOCRIT 40.3 % (41-53); HEMOGLOBIN 13.3 g/dL (13.5-17.5); LYMPHOCYTES # (AUTO) 3.3 K/uL (1.0-4.8); LYMPHOCYTES % (AUTO) 48.5 % (22.0-44.0); MEAN CORPUSCULAR HEMOGLOBIN 27.8 pg (26.0-34.0); MEAN CORPUSCULAR HGB CONC 32.9 G/dL (31.0-37.0); MEAN CORPUSCULAR VOLUME 84 fL (80-100); MONOCYTES # (AUTO) 0.9 K/uL (0.1-1.0); MONOCYTES % (AUTO) 12.9 % (2.0-9.0); NEUTROPHILS # (AUTO) 2.4 K/uL (1.8-7.7); NEUTROPHILS % (AUTO) 35.6 % (40.0-70.0); PLATELET COUNT (AUTO) 188 K/uL (150-450); RED BLOOD CELL COUNT(AUTO) 4.78 MIL/uL (4.50-5.90); RED CELL DISTRIBUTION WIDTH 14.5 % (11.5-14.5)
[2019-09-03 19:21] LABS: ANION GAP 8 mmol/L (8-16); CALCIUM, TOTAL 9.2 mg/dL (8.8-10.5); CARBON DIOXIDE 27 mmol/L (22-29); CHLORIDE 104 mmol/L (98-107); CREATININE 0.95 mg/dL (0.60-1.30); GLOMERULAR FILTR. RATE CALC > 60 mL/min (>60); GLUCOSE,RANDOM 97 mg/dL (70-110); POTASSIUM 3.8 mmol/L (3.5-5.1); SODIUM SERUM 139 mmol/L (136-145); UREA NITROGEN, BLOOD 13 mg/dL (7-18)
[2019-09-03 19:27] LABS: ALANINE AMINOTRANSFERASE 18 U/L (12-78); ALBUMIN 3.5 g/dL (3.4-5.0); ALKALINE PHOSPHATASE 72 U/L (46-116); ASPARTATE AMINOTRANSFERASE 9 U/L (15-37); BILIRUBIN,TOTAL 0.2 mg/dL (0.1-1.0); TOTAL PROTEIN, SERUM 6.9 g/dL (6.4-8.2)
[2019-09-03] MEDS ORDERED: HALOPERIDOL 5 MG TABLET PO PRN (23:15)
[2019-09-03] MEDS ORDERED: ZOLPIDEM TARTRATE 10 MG TABLET PO PRN (23:15)
[2019-09-03] MEDS ORDERED: LORazepam 2 MG TABLET PO PRN (23:15)
[2019-09-04] MEDS ORDERED: ZOLPIDEM TARTRATE 10 MG TABLET PO PRN (00:30)
[2019-09-04 02:23] VITALS: BP 138/92
[2019-09-04] MEDS ORDERED: INFLUENZA VIRUS VACCINE QVS 2019-20 (3YR+)/PF 60 MCG/0.5 ML SYRINGE IM ONE (06:00)
[2019-09-04] MEDS ORDERED: NICOTINE 14 MG/24 HOUR PATCH TD PRN (11:30)
[2019-09-04] MEDS ORDERED: ALBUTEROL SULFATE HFA 90 MCG/PUFF 8 GM INHALER IH PRN (11:30)
[2019-09-04] MEDS ORDERED: ONDANSETRON HCL 4 MG TABLET PO PRN (11:30)
[2019-09-04] MEDS ORDERED: CloNIDine HCL 0.1 MG TABLET PO PRN (11:30)
[2019-09-04] MEDS ORDERED: PETROLATUM,WHITE 28 GM JELLY TP PRN (11:30)
[2019-09-04] MEDS ORDERED: LOPERAMIDE HCL 2 MG CAPSULE PO PRN (11:30)
[2019-09-04] MEDS ORDERED: MAGNESIUM HYDROXIDE SUSPENSION 30 ML UDCUP PO PRN (11:30)
[2019-09-04] MEDS ORDERED: DOCUSATE SODIUM 100 MG CAPSULE PO PRN (11:30)
[2019-09-04] MEDS ORDERED: GuaiFENesin/D-METHORPHAN [SUGAR-FREE] 200-20MG/10 ML SYRUP UDCUP PO PRN (11:30)
[2019-09-04] MEDS ORDERED: ACETAMINOPHEN 325 MG TABLET PO PRN (11:30)
[2019-09-04] MEDS ORDERED: IBUPROFEN 400 MG TABLET PO PRN (11:30)
[2019-09-04] MEDS ORDERED: MAG HYDROX/AL HYDROX/SIMETH ES 30 ML SUSPENSION UDCUP PO PRN (11:30)
[2019-09-04 16:00] VITALS: BP 116/66
[2019-09-04] MEDS: HALOPERIDOL 5 MG TABLET PO PRN (16:59)
[2019-09-04] MEDS: RisperiDONE 3 MG TABLET PO SCH (16:59)
[2019-09-04] MEDS: LORazepam 2 MG TABLET PO PRN (17:00)
[2019-09-05 06:16] VITALS: BP 122/72
[2019-09-05] MEDS: RisperiDONE 3 MG TABLET PO SCH ×2 (10:05→16:28)
[2019-09-05] MEDS: VENLAFAXINE HCL 75 MG ER CAPSULE PO SCH (10:05)
[2019-09-05] MEDS: HALOPERIDOL 5 MG TABLET PO PRN (16:28)
[2019-09-05] MEDS: LORazepam 2 MG TABLET PO PRN (16:28)
[2019-09-06 01:58] VITALS: BP 118/74
[2019-09-06] MEDS: RisperiDONE 3 MG TABLET PO SCH ×2 (08:25→16:58)
[2019-09-06] MEDS: VENLAFAXINE HCL 75 MG ER CAPSULE PO SCH (08:25)
[2019-09-06 09:24] VITALS: BP 108/67
[2019-09-07 05:08] VITALS: BP 118/70
[2019-09-07] MEDS: VENLAFAXINE HCL 75 MG ER CAPSULE PO SCH (08:24)
[2019-09-07] MEDS: RisperiDONE 3 MG TABLET PO SCH ×2 (08:24→17:18)
[2019-09-08 08:15] VITALS: BP 112/80
[2019-09-08] MEDS: VENLAFAXINE HCL 75 MG ER CAPSULE PO SCH (08:24)
[2019-09-08] MEDS: RisperiDONE 3 MG TABLET PO SCH ×2 (08:25→16:45)
[2019-09-08 16:04] VITALS: BP 108/69
[2019-09-09 00:54] VITALS: BP 110/68
[2019-09-09] MEDS: VENLAFAXINE HCL 75 MG ER CAPSULE PO SCH (08:42)
[2019-09-09 08:43] VITALS: BP 107/57
[2019-09-09] MEDS: RisperiDONE 3 MG TABLET PO SCH ×2 (08:43→16:57)
[2019-09-09 16:35] VITALS: BP 106/60
[2019-09-09] MEDS: LORazepam 2 MG TABLET PO PRN (16:58)
[2019-09-10 06:23] VITALS: BP 88/52
[2019-09-10] MEDS: RisperiDONE 3 MG TABLET PO SCH (08:51)
[2019-09-10] MEDS: VENLAFAXINE HCL 75 MG ER CAPSULE PO SCH (08:51)
[2019-09-10] MEDS ORDERED: RISP3 PO (13:53)
[2019-09-10] MEDS ORDERED: VENL-67 PO (13:53)
== END 2019-09-10 15:55 | disposition home or self-care (01) | DRG 750 ==
LOC: EMS 18:13 → B3A 09-04 00:30
PROVIDERS: ADMIT Psychiatry & Neurology Psychiatry; ATTEND Psychiatry & Neurology Psychiatry
DX: F25.1 Schizoaffective disorder, depressive type (principal); R45.851 Suicidal ideations; Z59.0 Homelessness; F12.90 Cannabis use, unspecified, uncomplicated; F17.210 Nicotine dependence, cigarettes, uncomplicated; F15.10 Other stimulant abuse, uncomplicated; E78.5 Hyperlipidemia, unspecified; E87.6 Hypokalemia; I10 Essential (primary) hypertension; D64.9 Anemia, unspecified
CPT/HCPCS: 87081; G0480

== ENCOUNTER 2020-04-04 18:33 | Inpatient (IN) | payer MEDICAID, OTHER ==
[~2020-04-04] VITALS: Ht 170.2 cm; Wt 93.3 kg
[~2020-04-04 18:33] MED LIST changes: -CEPH-582 PO; -RISP3 PO; +RISP3TAB14 PO; -SULF1TAB42 PO
[2020-04-04 23:26] LABS: COVID AG,FIA SOURCE NASOPHARYNGEAL
[2020-04-05] MEDS ORDERED: QUEtiapine FUMARATE 100 MG TABLET PO PRN
[2020-04-05] MEDS ORDERED: ZOLPIDEM TARTRATE 10 MG TABLET PO PRN
[2020-04-05 05:17] VITALS: BP 125/94
[2020-04-05] MEDS ORDERED: IBUPROFEN 600 MG TABLET PO PRN (05:45)
[2020-04-05] MEDS ORDERED: PNEUMOCOCCAL VACCINE POLYVALENT 0.5 ML VIAL [PPSV23] IM ONE (06:45)
[2020-04-05] MEDS ORDERED: INFLUENZA VIRUS VACCINE QVS 2020-21 (6MO+)/PF 60 MCG/0.5 ML SYRINGE IM ONE (06:45)
[2020-04-05] MEDS ORDERED: GuaiFENesin/D-METHORPHAN [SUGAR-FREE] 200-20MG/10 ML SYRUP UDCUP PO PRN (07:45)
[2020-04-05] MEDS ORDERED: DOCUSATE SODIUM 100 MG CAPSULE PO PRN (07:45)
[2020-04-05] MEDS ORDERED: NICOTINE 14 MG/24 HOUR PATCH TD PRN (07:45)
[2020-04-05] MEDS ORDERED: MAGNESIUM HYDROXIDE SUSPENSION 30 ML UDCUP PO PRN (07:45)
[2020-04-05] MEDS ORDERED: ONDANSETRON HCL 4 MG TABLET PO PRN (07:45)
[2020-04-05] MEDS ORDERED: ACETAMINOPHEN 325 MG TABLET PO PRN (07:45)
[2020-04-05] MEDS ORDERED: MAG HYDROX/AL HYDROX/SIMETH ES 30 ML SUSPENSION UDCUP PO PRN (07:45)
[2020-04-05] MEDS ORDERED: PETROLATUM,WHITE 28 GM JELLY TP PRN (07:45)
[2020-04-05] MEDS ORDERED: LOPERAMIDE HCL 2 MG CAPSULE PO PRN (07:45)
[2020-04-05] MEDS ORDERED: CloNIDine HCL 0.1 MG TABLET PO PRN (07:45)
[2020-04-05] MEDS ORDERED: ALBUTEROL SULFATE HFA 90 MCG/PUFF 8 GM INHALER IH PRN (07:45)
[2020-04-05 08:23] LABS: APPEARANCE,URINE CLOUDY (CLEAR); GLUCOSE, URINE (UA) NEGATIVE (NEGATIVE); KETONES,URINE NEGATIVE (NEGATIVE); LEUKOCYTE ESTERASE ,URINE NEGATIVE (NEGATIVE); NITRATE,URINE NEGATIVE (NEGATIVE); OCCULT BLOOD,URINE NEGATIVE (NEGATIVE); PROTEIN,URINE NEGATIVE (NEGATIVE)
[2020-04-05 08:24] LABS: BILIRUBIN,URINE PRELIM. POSITIVE (NEGATIVE)
[2020-04-05 08:26] LABS: AMPHET/METH SCREEN,URINE NEGATIVE (NEGATIVE); BARBITURATE SCREEN, URINE NEGATIVE (NEGATIVE); BENZODIAZEPINES SCREEN,URINE NEGATIVE (NEGATIVE); CANNABINOID SCREEN,URINE NEGATIVE (NEGATIVE); COCAINE SCREEN,URINE NEGATIVE (NEGATIVE); METHADONE SCREEN, URINE NEGATIVE (NEGATIVE); OPIATE SCREEN,URINE NEGATIVE (NEGATIVE)
[2020-04-05 08:27] LABS: PHENCYCLIDINE SCREEN,URINE NEGATIVE (NEGATIVE)
[2020-04-05 08:33] VITALS: BP 106/60
[2020-04-05] MEDS: CEPHALEXIN MONOHYDRATE 500 MG CAPSULE PO SCH ×4 (08:40→20:27)
[2020-04-05] MEDS: SULFAMETHOX/TRIMETH DS 800-160 MG/TABLET PO SCH ×2 (08:40→17:13)
[2020-04-05 09:02] LABS: BACTERIA,URINE None Seen /HPF (None Seen); RBC,URINE None Seen /HPF (0-2); WBC,URINE None Seen /HPF (0-5)
[2020-04-05] MEDS: VENLAFAXINE HCL 75 MG ER CAPSULE PO SCH (13:30)
[2020-04-05] MEDS: RisperiDONE 2 MG TABLET PO SCH (20:27)
[2020-04-06 08:31] VITALS: BP 90/46
[2020-04-06] MEDS: VENLAFAXINE HCL 75 MG ER CAPSULE PO SCH (08:38)
[2020-04-06] MEDS: RisperiDONE 2 MG TABLET PO SCH ×2 (08:38→20:38)
[2020-04-06] MEDS: SULFAMETHOX/TRIMETH DS 800-160 MG/TABLET PO SCH ×2 (08:38→17:12)
[2020-04-06] MEDS: CEPHALEXIN MONOHYDRATE 500 MG CAPSULE PO SCH ×4 (08:38→20:38)
[2020-04-07 01:15] VITALS: BP 104/65
[2020-04-07 08:25] VITALS: BP 98/50
[2020-04-07] MEDS: VENLAFAXINE HCL 75 MG ER CAPSULE PO SCH (09:31)
[2020-04-07] MEDS: RisperiDONE 2 MG TABLET PO SCH ×2 (09:31→21:58)
[2020-04-07] MEDS: CEPHALEXIN MONOHYDRATE 500 MG CAPSULE PO SCH ×4 (09:31→21:58)
[2020-04-07] MEDS: SULFAMETHOX/TRIMETH DS 800-160 MG/TABLET PO SCH ×2 (09:31→17:30)
[2020-04-07 17:43] VITALS: BP 101/60
[2020-04-08 02:08] VITALS: BP 105/65
[2020-04-08] MEDS: SULFAMETHOX/TRIMETH DS 800-160 MG/TABLET PO SCH ×2 (09:33→17:12)
[2020-04-08] MEDS: VENLAFAXINE HCL 75 MG ER CAPSULE PO SCH (09:33)
[2020-04-08] MEDS: CEPHALEXIN MONOHYDRATE 500 MG CAPSULE PO SCH ×4 (09:33→20:01)
[2020-04-08] MEDS: RisperiDONE 2 MG TABLET PO SCH ×2 (09:33→20:01)
[2020-04-08 12:37] VITALS: BP 101/56
[2020-04-08 16:32] VITALS: BP 106/64
[2020-04-09 03:06] VITALS: BP 101/68
[2020-04-09 09:03] VITALS: BP 107/64
[2020-04-09] MEDS: SULFAMETHOX/TRIMETH DS 800-160 MG/TABLET PO SCH ×2 (09:27→16:51)
[2020-04-09] MEDS: CEPHALEXIN MONOHYDRATE 500 MG CAPSULE PO SCH ×4 (09:27→20:15)
[2020-04-09] MEDS: VENLAFAXINE HCL 75 MG ER CAPSULE PO SCH (09:27)
[2020-04-09] MEDS: RisperiDONE 2 MG TABLET PO SCH ×2 (09:27→20:15)
[2020-04-09 16:31] VITALS: BP 108/62
[2020-04-10] MEDS: VENLAFAXINE HCL 75 MG ER CAPSULE PO SCH (08:20)
[2020-04-10] MEDS: CEPHALEXIN MONOHYDRATE 500 MG CAPSULE PO SCH ×4 (08:20→21:00)
[2020-04-10] MEDS: RisperiDONE 2 MG TABLET PO SCH ×2 (08:20→21:00)
[2020-04-10] MEDS: SULFAMETHOX/TRIMETH DS 800-160 MG/TABLET PO SCH ×2 (08:20→16:51)
[2020-04-10 08:46] VITALS: BP 117/68
[2020-04-11 01:16] VITALS: BP 100/61
[2020-04-11] MEDS: LORazepam 2 MG TABLET PO PRN (01:45)
[2020-04-11] MEDS: MULTIVITAMINS WITH MINERALS, THERAPEUTIC TABLET PO SCH (09:23)
[2020-04-11] MEDS: VENLAFAXINE HCL 75 MG ER CAPSULE PO SCH (09:23)
[2020-04-11] MEDS: CEPHALEXIN MONOHYDRATE 500 MG CAPSULE PO SCH ×4 (09:23→20:33)
[2020-04-11] MEDS: SULFAMETHOX/TRIMETH DS 800-160 MG/TABLET PO SCH ×2 (09:23→16:53)
[2020-04-11] MEDS: RisperiDONE 2 MG TABLET PO SCH ×2 (09:23→20:33)
[2020-04-11 16:40] VITALS: BP 104/72
[2020-04-12 06:13] VITALS: BP 101/56
[2020-04-12] MEDS: SULFAMETHOX/TRIMETH DS 800-160 MG/TABLET PO SCH ×2 (09:47→17:26)
[2020-04-12] MEDS: VENLAFAXINE HCL 75 MG ER CAPSULE PO SCH (09:47)
[2020-04-12] MEDS: CEPHALEXIN MONOHYDRATE 500 MG CAPSULE PO SCH ×4 (09:47→21:25)
[2020-04-12] MEDS: RisperiDONE 2 MG TABLET PO SCH ×2 (09:48→21:25)
[2020-04-12] MEDS: MULTIVITAMINS WITH MINERALS, THERAPEUTIC TABLET PO SCH (09:48)
[2020-04-12 16:32] VITALS: BP 102/96
[2020-04-13 00:37] VITALS: BP 108/56
[2020-04-13 08:08] LABS: BASOPHILS % (AUTO) 0.4 % (0.0-2.0); EOSINOPHILS % (AUTO) 3.5 % (1.0-6.0); HEMATOCRIT 40.8 % (41-53); HEMOGLOBIN 13.6 g/dL (13.5-17.5); LYMPHOCYTES # (AUTO) 1.9 K/uL (1.0-4.8); MEAN CORPUSCULAR HEMOGLOBIN 28.3 pg (26.0-34.0); MEAN CORPUSCULAR HGB CONC 33.4 G/dL (31.0-37.0); MEAN CORPUSCULAR VOLUME 85 fL (80-100); MONOCYTES # (AUTO) 0.6 K/uL (0.1-1.0); NEUTROPHILS # (AUTO) 4.2 K/uL (1.8-7.7); NEUTROPHILS % (AUTO) 60.1 % (40.0-70.0); PLATELET COUNT (AUTO) 207 K/uL (150-450); RED BLOOD CELL COUNT(AUTO) 4.82 MIL/uL (4.50-5.90); RED CELL DISTRIBUTION WIDTH 13.6 % (11.5-14.5)
[2020-04-13 08:22] LABS: ALANINE AMINOTRANSFERASE 23 U/L (12-78); ALBUMIN 3.5 g/dL (3.4-5.0); ALKALINE PHOSPHATASE 58 U/L (46-116); ANION GAP 9 mmol/L (8-16); ASPARTATE AMINOTRANSFERASE 16 U/L (15-37); BILIRUBIN,TOTAL 0.2 mg/dL (0.1-1.0); CALCIUM, TOTAL 9.1 mg/dL (8.8-10.5); CARBON DIOXIDE 25 mmol/L (22-29); CHLORIDE 102 mmol/L (98-107); CHOL/HDL RATIO 8.3 (4.2-7.3); CHOLESTEROL 240 mg/dL (131-200); GLOMERULAR FILTR. RATE CALC > 60 mL/min (>60); GLUCOSE,RANDOM 96 mg/dL (70-110); HDL CHOLESTEROL 29 mg/dL (40-60); LDL CHOL (CALC.) 164 mg/dL (0-130); POTASSIUM 4.4 mmol/L (3.5-5.1); SODIUM SERUM 136 mmol/L (136-145); TOTAL PROTEIN, SERUM 6.6 g/dL (6.4-8.2); TRIGLYCERIDES 236 mg/dL (15-150); UREA NITROGEN, BLOOD 12 mg/dL (7-18)
[2020-04-13] MEDS: SULFAMETHOX/TRIMETH DS 800-160 MG/TABLET PO SCH ×2 (09:00→17:59)
[2020-04-13] MEDS: VENLAFAXINE HCL 75 MG ER CAPSULE PO SCH (10:27)
[2020-04-13] MEDS: MULTIVITAMINS WITH MINERALS, THERAPEUTIC TABLET PO SCH (10:27)
[2020-04-13] MEDS: RisperiDONE 2 MG TABLET PO SCH ×2 (10:27→21:27)
[2020-04-13] MEDS: CEPHALEXIN MONOHYDRATE 500 MG CAPSULE PO SCH ×4 (10:27→21:27)
[2020-04-13 16:24] VITALS: BP 118/62
[2020-04-13] MEDS: LORazepam 2 MG TABLET PO PRN (18:17)
[2020-04-14 01:00] VITALS: BP 106/63
[2020-04-14] MEDS: RisperiDONE 2 MG TABLET PO SCH ×2 (08:43→20:21)
[2020-04-14] MEDS: SULFAMETHOX/TRIMETH DS 800-160 MG/TABLET PO SCH ×2 (08:43→16:05)
[2020-04-14] MEDS: CEPHALEXIN MONOHYDRATE 500 MG CAPSULE PO SCH ×4 (08:43→20:21)
[2020-04-14] MEDS: MULTIVITAMINS WITH MINERALS, THERAPEUTIC TABLET PO SCH (08:43)
[2020-04-14] MEDS: VENLAFAXINE HCL 75 MG ER CAPSULE PO SCH (08:43)
[2020-04-14 08:49] VITALS: BP 106/75
[2020-04-14 16:12] VITALS: BP 117/68
[2020-04-14] MEDS: LORazepam 2 MG TABLET PO PRN (17:04)
[2020-04-15 06:09] VITALS: BP 121/67
[2020-04-15] MEDS: LORazepam 2 MG TABLET PO PRN ×2 (06:38→18:44)
[2020-04-15] MEDS: RisperiDONE 2 MG TABLET PO SCH ×2 (08:22→20:12)
[2020-04-15] MEDS: MULTIVITAMINS WITH MINERALS, THERAPEUTIC TABLET PO SCH (08:23)
[2020-04-15] MEDS: VENLAFAXINE HCL 75 MG ER CAPSULE PO SCH (08:23)
[2020-04-15 09:56] VITALS: BP 102/59
[2020-04-15] MEDS ORDERED: TUBERCULIN, PURIFIED PROTEIN DERIVATIVE 5 TU/0.1 ML SYRINGE ID ONE (14:00)
[2020-04-15 16:22] VITALS: BP 110/61
[2020-04-15] MEDS: SIMVASTATIN 10 MG TABLET PO SCH (20:12)
[2020-04-16 05:32] VITALS: BP 132/81
[2020-04-16] MEDS: MULTIVITAMINS WITH MINERALS, THERAPEUTIC TABLET PO SCH (09:06)
[2020-04-16] MEDS: RisperiDONE 2 MG TABLET PO SCH ×2 (09:06→20:36)
[2020-04-16] MEDS: VENLAFAXINE HCL 75 MG ER CAPSULE PO SCH (09:06)
[2020-04-16 10:44] LABS: COVID AG,FIA SOURCE NASOPHARYNGEAL
[2020-04-16 16:13] VITALS: BP 111/74
[2020-04-16] MEDS: LORazepam 2 MG TABLET PO PRN (17:23)
[2020-04-16] MEDS: SIMVASTATIN 10 MG TABLET PO SCH (20:36)
[2020-04-17 05:23] VITALS: BP 120/76
[2020-04-17] MEDS: MULTIVITAMINS WITH MINERALS, THERAPEUTIC TABLET PO SCH (08:14)
[2020-04-17] MEDS: RisperiDONE 2 MG TABLET PO SCH (08:15)
[2020-04-17] MEDS: VENLAFAXINE HCL 75 MG ER CAPSULE PO SCH (08:15)
[2020-04-17] MEDS ORDERED: RISP2TAB76 PO (09:29)
[2020-04-17] MEDS ORDERED: VENL-67 PO (09:29)
[2020-04-17] MEDS ORDERED: SIMV-259 PO ×2 (14:32→14:46)
[2020-04-17 16:22] VITALS: BP 110/71
== END 2020-04-17 16:15 | disposition home or self-care (01) | DRG 750 ==
LOC: EMS 18:35 → B2S 23:52
DX: F25.1 Schizoaffective disorder, depressive type (principal); R45.851 Suicidal ideations; Z59.0 Homelessness; Z79.899 Other long term (current) drug therapy; Z91.5 Personal history of self-harm; R45.850 Homicidal ideations; E78.5 Hyperlipidemia, unspecified; I10 Essential (primary) hypertension; F10.10 Alcohol abuse, uncomplicated; F17.200 Nicotine dependence, unspecified, uncomplicated; F12.90 Cannabis use, unspecified, uncomplicated; Z88.8 Allergy status to other drugs, medicaments and biological substances; Z03.818 Encounter for observation for suspected exposure to other biological agents ruled out
CPT/HCPCS: 87426

== ENCOUNTER 2020-04-21 10:16 | Emergency (ER) | payer MEDICAID, OTHER ==
[~2020-04-21] VITALS: Ht 170.2 cm; Wt 68.2 kg
[~2020-04-21 10:16] MED LIST changes: +RISP2TAB76 PO; -RISP3TAB14 PO; +SIMV-259 PO
[2020-04-21 13:44] LABS: BASOPHILS % (AUTO) 0.6 % (0.0-2.0); EOSINOPHILS % (AUTO) 4.1 % (1.0-6.0); HEMATOCRIT 42.3 % (41-53); HEMOGLOBIN 14.1 g/dL (13.5-17.5); LYMPHOCYTES # (AUTO) 1.7 K/uL (1.0-4.8); LYMPHOCYTES % (AUTO) 27.6 % (22.0-44.0); MEAN CORPUSCULAR HEMOGLOBIN 28.3 pg (26.0-34.0); MEAN CORPUSCULAR HGB CONC 33.4 G/dL (31.0-37.0); MEAN CORPUSCULAR VOLUME 85 fL (80-100); MONOCYTES # (AUTO) 0.7 K/uL (0.1-1.0); MONOCYTES % (AUTO) 11.7 % (2.0-9.0); NEUTROPHILS # (AUTO) 3.4 K/uL (1.8-7.7); PLATELET COUNT (AUTO) 195 K/uL (150-450); RED CELL DISTRIBUTION WIDTH 13.8 % (11.5-14.5)
[2020-04-21 13:57] LABS: ANION GAP 8 mmol/L (8-16); CALCIUM, TOTAL 9.2 mg/dL (8.8-10.5); CARBON DIOXIDE 29 mmol/L (22-29); CHLORIDE 101 mmol/L (98-107); GLOMERULAR FILTR. RATE CALC > 60 mL/min (>60); GLUCOSE,RANDOM 112 mg/dL (70-110); POTASSIUM 4.3 mmol/L (3.5-5.1); SODIUM SERUM 138 mmol/L (136-145); UREA NITROGEN, BLOOD 16 mg/dL (7-18)
[2020-04-21 14:03] LABS: ALANINE AMINOTRANSFERASE 28 U/L (12-78); ALBUMIN 3.5 g/dL (3.4-5.0); ALKALINE PHOSPHATASE 67 U/L (46-116); ASPARTATE AMINOTRANSFERASE 19 U/L (15-37); BILIRUBIN,TOTAL 0.4 mg/dL (0.1-1.0); TOTAL PROTEIN, SERUM 6.6 g/dL (6.4-8.2)
[2020-04-21 14:38] LABS: AMPHET/METH SCREEN,URINE POSITIVE (NEGATIVE); BARBITURATE SCREEN, URINE NEGATIVE (NEGATIVE); BENZODIAZEPINES SCREEN,URINE NEGATIVE (NEGATIVE); CANNABINOID SCREEN,URINE NEGATIVE (NEGATIVE); COCAINE SCREEN,URINE NEGATIVE (NEGATIVE); METHADONE SCREEN, URINE NEGATIVE (NEGATIVE); OPIATE SCREEN,URINE NEGATIVE (NEGATIVE); PHENCYCLIDINE SCREEN,URINE NEGATIVE (NEGATIVE)
[2020-04-21 14:53] VITALS: BP 100/66
== END 2020-04-21 16:15 | disposition home or self-care (01) ==
LOC: EMS 10:16
DX: F20.9 Schizophrenia, unspecified (principal)
CPT/HCPCS: 36415; 80053; 80307; 85025; 99284; G0480

== ENCOUNTER 2023-06-19 08:17 | Emergency (ER) | payer MEDICAID ==
[~2023-06-19] VITALS: Ht 170.2 cm; Wt 81.8 kg
[~2023-06-19 08:17] MED LIST changes: +HALO5TAB2 PO; +QUET300T2 PO; -RISP2TAB76 PO; -SIMV-259 PO; -VENL-67 PO
[2023-06-19] MEDS ORDERED: RISP0.5T66 PO (08:24)
[2023-06-19] MEDS ORDERED: QUET300T19 PO (08:24)
[2023-06-19 09:27] VITALS: BP 124/86; PULSE 79; RESP 18; TEMP 97.9
[2023-06-19] MEDS ORDERED: QUEtiapine FUMARATE 100 MG TABLET PO ONE (09:30)
[2023-06-19 09:43] LABS: BASOPHILS % (AUTO) 0.7 % (0.0-2.0); EOSINOPHILS % (AUTO) 1.8 % (1.0-6.0); HEMATOCRIT 43.2 % (41-53); HEMOGLOBIN 14.7 g/dL (13.5-17.5); LYMPHOCYTES % (AUTO) 26.2 % (22.0-44.0); MEAN CORPUSCULAR HEMOGLOBIN 29.7 pg (26.0-34.0); MEAN CORPUSCULAR HGB CONC 34.1 G/dL (31.0-37.0); MEAN CORPUSCULAR VOLUME 87 fL (80-100); MONOCYTES # (AUTO) 0.9 K/uL (0.1-1.0); MONOCYTES % (AUTO) 11.2 % (2.0-9.0); NEUTROPHILS # (AUTO) 4.6 K/uL (1.8-7.7); NEUTROPHILS % (AUTO) 60.1 % (40.0-70.0); PLATELET COUNT (AUTO) 218 K/uL (150-450); RED BLOOD CELL COUNT(AUTO) 4.97 MIL/uL (4.50-5.90); RED CELL DISTRIBUTION WIDTH 14.9 % (11.5-14.5); WHITE BLOOD COUNT (AUTO) 7.7 K/uL (4.5-11.0)
[2023-06-19 09:52] LABS: ANION GAP 12 mmol/L (8-16); CALCIUM, TOTAL 9.2 mg/dL (8.8-10.5); CARBON DIOXIDE 24 mmol/L (22-29); CHLORIDE 103 mmol/L (98-107); CREATININE 0.84 mg/dL (0.60-1.30); GLOMERULAR FILTR. RATE CALC > 60 mL/min (>60); GLUCOSE,RANDOM 107 mg/dL (70-110); POTASSIUM 3.9 mmol/L (3.5-5.1); SODIUM SERUM 139 mmol/L (136-145); UREA NITROGEN, BLOOD 9 mg/dL (7-18)
[2023-06-19 09:58] LABS: ALANINE AMINOTRANSFERASE 35 U/L (12-78); ALKALINE PHOSPHATASE 86 U/L (46-116); ASPARTATE AMINOTRANSFERASE 30 U/L (15-37); BILIRUBIN,TOTAL 0.7 mg/dL (0.1-1.0); TOTAL PROTEIN, SERUM 7.9 g/dL (6.4-8.2)
[2023-06-19] MEDS ORDERED: RISP1TAB98 PO ×2 (10:09→10:49)
[2023-06-19] MEDS ORDERED: QUET100T PO ×2 (10:09→10:49)
[2023-06-19 11:22] LABS: ALCOHOL, BLOOD (SERUM) < 3 mg/dL (0-10)
== END 2023-06-19 10:57 | disposition home or self-care (01) ==
LOC: EMS 08:49
DX: F25.1 Schizoaffective disorder, depressive type (principal); F15.10 Other stimulant abuse, uncomplicated; F10.20 Alcohol dependence, uncomplicated; F17.210 Nicotine dependence, cigarettes, uncomplicated; F12.90 Cannabis use, unspecified, uncomplicated; Z88.6 Allergy status to analgesic agent; Y90.9 Presence of alcohol in blood, level not specified
CPT/HCPCS: 99284; 80053; 85025; 36415; G0480

== ENCOUNTER 2023-11-08 08:47 | Emergency (ER) | payer OTHER ==
[~2023-11-08] VITALS: Ht 170.2 cm; Wt 80.5 kg
[~2023-11-08 08:47] MED LIST changes: -HALO5TAB2 PO; +QUET100T PO; -QUET300T2 PO; +RISP-31 PO
[2023-11-08 08:57] VITALS: BP 115/74; PULSE 88; RESP 16; TEMP 98.6
[2023-11-08 11:25] LABS: BASOPHILS % (AUTO) 0.8 % (0.0-2.0); EOSINOPHILS % (AUTO) 1.4 % (1.0-6.0); HEMATOCRIT 42.1 % (41-53); HEMOGLOBIN 13.8 g/dL (13.5-17.5); LYMPHOCYTES # (AUTO) 1.9 K/uL (1.0-4.8); MEAN CORPUSCULAR HEMOGLOBIN 27.9 pg (26.0-34.0); MEAN CORPUSCULAR HGB CONC 32.8 G/dL (31.0-37.0); MEAN CORPUSCULAR VOLUME 85 fL (80-100); MONOCYTES # (AUTO) 0.6 K/uL (0.1-1.0); MONOCYTES % (AUTO) 9.6 % (2.0-9.0); NEUTROPHILS # (AUTO) 3.5 K/uL (1.8-7.7); NEUTROPHILS % (AUTO) 57.2 % (40.0-70.0); PLATELET COUNT (AUTO) 257 K/uL (150-450); RED BLOOD CELL COUNT(AUTO) 4.96 MIL/uL (4.50-5.90); RED CELL DISTRIBUTION WIDTH 13.8 % (11.5-14.5); WHITE BLOOD COUNT (AUTO) 6.1 K/uL (4.5-11.0)
[2023-11-08 12:01] LABS: ALCOHOL, BLOOD (SERUM) < 3 mg/dL (0-10)
[2023-11-08 12:36] LABS: ALANINE AMINOTRANSFERASE 56 U/L (12-78); ALBUMIN 3.2 g/dL (3.4-5.0); ALKALINE PHOSPHATASE 66 U/L (46-116); ASPARTATE AMINOTRANSFERASE 26 U/L (15-37); BILIRUBIN,TOTAL 0.4 mg/dL (0.1-1.0); CALCIUM, TOTAL 8.7 mg/dL (8.8-10.5); CARBON DIOXIDE 25 mmol/L (22-29); GLOMERULAR FILTR. RATE CALC > 60 mL/min (>60); GLUCOSE,RANDOM 100 mg/dL (70-110); TOTAL PROTEIN, SERUM 7.5 g/dL (6.4-8.2); UREA NITROGEN, BLOOD 7 mg/dL (7-18)
[2023-11-08 12:46] LABS: ANION GAP 10 mmol/L (8-16); CHLORIDE 103 mmol/L (98-107); POTASSIUM 3.8 mmol/L (3.5-5.1); SODIUM SERUM 138 mmol/L (136-145)
== END 2023-11-08 14:23 | disposition left against medical advice (07) ==
LOC: EMS 08:48
DX: R45.851 Suicidal ideations (principal); Z53.21 Procedure and treatment not carried out due to patient leaving prior to being seen by health care provider
CPT/HCPCS: 80053; 36415; 85025; G0480

== ENCOUNTER 2024-04-05 17:08 | Inpatient (IN) | payer MEDICAID, OTHER ==
[~2024-04-05] VITALS: Ht 170.2 cm; Wt 103.0 kg
[2024-04-05 18:51] LABS: GLUCOMETER DEV NAME(LOC) POC.BV; POC SARS-COV2 AG, FIA NEGATIVE (NEGATIVE)
[2024-04-05] MEDS ORDERED: LORazepam 2 MG TABLET PO PRN (20:00)
[2024-04-05] MEDS ORDERED: OLANZapine 5 MG RAPDIS TABLET PO PRN (20:00)
[2024-04-05] MEDS ORDERED: HydrOXYzine PAMOATE 50 MG CAPSULE PO PRN (20:00)
[2024-04-05] MEDS ORDERED: ZOLPIDEM TARTRATE 10 MG TABLET PO PRN (20:00)
[2024-04-05] MEDS ORDERED: PNEUMOCOCCAL VACCINE POLYVALENT 0.5 ML SYRINGE [PPSV23] IM. ONE (20:45)
[2024-04-05] MEDS ORDERED: INFLUENZA VIRUS VACCINE TVS (6MO+) 2024-25/PF 45 MCG/0.5 ML SYRINGE IM. ONE (20:45)
[2024-04-06 08:03] VITALS: BP 108/62; PULSE 68; RESP 16; TEMP 97.5; O2SAT 97
[2024-04-06] MEDS: NALTREXONE HCL 50 MG TABLET PO SCH (08:30)
[2024-04-06] MEDS: MULTIVITAMINS WITH MINERALS, THERAPEUTIC TABLET PO SCH (08:30)
[2024-04-06] MEDS: FLUoxetine HCL 20 MG CAPSULE PO SCH (08:30)
[2024-04-06] MEDS: OMEGA-3/DHA/EPA/FISH OIL 1,000 MG CAPSULE PO SCH (08:30)
[2024-04-06] MEDS: THIAMINE 100 MG TABLET PO SCH (08:30)
[2024-04-06] MEDS: FOLIC ACID 1 MG TABLET PO SCH (08:31)
[2024-04-06] MEDS: PALIPERIDONE PALMITATE 234 MG/1.5 ML SYRINGE IM ONE (09:04)
[2024-04-06 20:15] VITALS: BP 100/71; PULSE 90; RESP 16; TEMP 97.4; O2SAT 97
[2024-04-06] MEDS: MELATONIN 5 MG TABLET PO SCH (20:41)
[2024-04-06] MEDS: OLANZapine 5 MG RAPDIS TABLET PO SCH (20:42)
[2024-04-07 08:03] VITALS: RESP 17
[2024-04-07] MEDS ORDERED: QUEtiapine FUMARATE 100 MG TABLET PO PRN (14:15)
[2024-04-07] MEDS: QUEtiapine FUMARATE 25 MG TABLET PO SCH (16:44)
[2024-04-07 20:22] VITALS: RESP 18
[2024-04-07] MEDS: QUEtiapine FUMARATE 200 MG TABLET PO SCH (20:47)
[2024-04-07] MEDS ORDERED: OLANZapine 10 MG RAPDIS TABLET PO SCH (21:00)
[2024-04-08] MEDS: QUEtiapine FUMARATE 25 MG TABLET PO SCH (17:35)
[2024-04-08 19:54] VITALS: RESP 18
[2024-04-08 20:00] VITALS: RESP 18
[2024-04-08] MEDS: QUEtiapine FUMARATE 200 MG TABLET PO SCH (20:33)
[2024-04-09 08:12] VITALS: BP 100/60; PULSE 61; RESP 17; TEMP 98.5; O2SAT 98
[2024-04-09] MEDS ORDERED: PNEUMOCOCCAL VACCINE POLYVALENT 0.5 ML SYRINGE [PPSV23] IM. ONE (14:45)
[2024-04-09] MEDS: QUEtiapine FUMARATE 200 MG TABLET PO SCH (20:51)
[2024-04-10] MEDS ORDERED: PALIPERIDONE PALMITATE 156 MG/ML SYRINGE IM ONE (09:00)
[2024-04-10 09:34] VITALS: RESP 18
[2024-04-10 20:08] VITALS: RESP 18
[2024-04-11 08:03] VITALS: RESP 16
[2024-04-12 08:25] VITALS: RESP 18
[2024-04-12 20:05] VITALS: RESP 18
[2024-04-12] MEDS: QUEtiapine FUMARATE 100 MG TABLET PO SCH (20:23)
[2024-04-13 08:28] VITALS: RESP 16
[2024-04-14 08:01] VITALS: RESP 16
[2024-04-14] MEDS: QUEtiapine FUMARATE 25 MG TABLET PO SCH (08:01)
[2024-04-14 20:05] VITALS: BP 111/64; PULSE 72; RESP 18; TEMP 97.4; O2SAT 98
[2024-04-15 08:17] VITALS: BP 131/72; PULSE 70; RESP 17; TEMP 97.6; O2SAT 100
[2024-04-16 08:50] VITALS: RESP 18
[2024-04-16 21:11] VITALS: RESP 17; TEMP 98
[2024-04-17 20:08] VITALS: BP 101/58; PULSE 70; RESP 18; TEMP 97.2; O2SAT 98
[2024-04-18 21:00] VITALS: BP 125/79; PULSE 80; RESP 18; TEMP 98.2; O2SAT 98
[2024-04-19 08:02] VITALS: RESP 18
[2024-04-19] MEDS: QUEtiapine FUMARATE 100 MG TABLET PO SCH (08:38)
[2024-04-19 20:15] VITALS: BP 129/72; PULSE 86; RESP 17; TEMP 98; O2SAT 98
[2024-04-20 08:11] VITALS: RESP 17
[2024-04-20 20:13] VITALS: BP 147/65; PULSE 90; RESP 18; TEMP 98.5; O2SAT 94
[2024-04-21 08:44] VITALS: RESP 18
[2024-04-21 20:15] VITALS: BP 119/70; PULSE 78; RESP 18; TEMP 98.1; O2SAT 98
[2024-04-22 08:08] VITALS: RESP 16
[2024-04-23 08:28] VITALS: RESP 17
[2024-04-23 20:07] VITALS: BP 128/84; PULSE 88; RESP 18; TEMP 97.9
[2024-04-24 08:03] VITALS: RESP 17
[2024-04-24 20:51] VITALS: RESP 18
[2024-04-25 10:03] VITALS: RESP 16
[2024-04-25 20:24] VITALS: BP 131/73; PULSE 103; RESP 16; TEMP 97.6; O2SAT 95
[2024-04-26 08:56] VITALS: RESP 18
[2024-04-27 10:06] VITALS: RESP 17
[2024-04-27] MEDS: PRAZOSIN HCL 1 MG CAPSULE PO SCH (21:00)
[2024-04-27] MEDS: PRAZOSIN HCL 1 MG CAPSULE PO ONE (21:00)
[2024-04-28 08:37] VITALS: RESP 18
[2024-04-28 21:44] VITALS: BP 108/60; PULSE 94; RESP 18; TEMP 97.4; O2SAT 97
[2024-04-29 08:49] VITALS: RESP 16
[2024-04-30 08:53] VITALS: RESP 18
[2024-04-30] MEDS: GuaiFENesin/D-METHORPHAN [SUGAR-FREE] 200-20MG/10 ML SYRUP UDCUP PO PRN (16:33)
[2024-04-30 20:26] VITALS: BP 124/79; PULSE 79; RESP 18; TEMP 98
[2024-04-30 22:00] VITALS: BP 111/62; PULSE 95; RESP 18; TEMP 97.5; O2SAT 99
[2024-05-01 08:27] VITALS: BP 100/60; PULSE 76; RESP 18; TEMP 97.7; O2SAT 98
[2024-05-01 20:44] VITALS: BP 101/64; PULSE 72; RESP 17; TEMP 98; O2SAT 99
[2024-05-02 08:18] VITALS: RESP 18
[2024-05-03 08:36] VITALS: RESP 18
[2024-05-03 20:29] VITALS: BP 134/85; PULSE 77; RESP 18; TEMP 97.8
[2024-05-04 08:23] VITALS: RESP 16
[2024-05-05 08:47] VITALS: RESP 18
[2024-05-05 20:51] VITALS: RESP 18
[2024-05-06 08:19] VITALS: RESP 17
[2024-05-06 20:14] VITALS: BP 140/84; PULSE 81; RESP 17; TEMP 98; O2SAT 99
[2024-05-07 08:40] VITALS: RESP 18
[2024-05-07] MEDS: ALPRAZolam 1 MG TABLET PO ONE (17:16)
[2024-05-07 20:21] VITALS: RESP 18
[2024-05-08] MEDS: TUBERCULIN, PURIFIED PROTEIN DERIVATIVE 5 TU/0.1 ML SYRINGE ID ONE (00:44)
[2024-05-08 09:05] VITALS: RESP 17
[2024-05-09 08:10] VITALS: RESP 16
[2024-05-10 08:04] VITALS: RESP 17
[2024-05-10] MEDS ORDERED: QUET100T34 PO ×2 (10:00)
[2024-05-10] MEDS ORDERED: PRAZ1 PO (10:00)
[2024-05-10] MEDS ORDERED: NALT50TA33 PO (10:00)
[2024-05-10 10:10] LABS: COVID AG,FIA SOURCE NASAL SWAB
[2024-05-10 11:25] LABS: SARS-COV2 (COVID) ANTIGEN,FIA Negative (Negative)
[2024-05-10 12:52] VITALS: BP 133/80; PULSE 98; RESP 17; TEMP 98.2; O2SAT 97
== END 2024-05-10 13:00 | DRG 750 ==
LOC: B3A 18:09
PROVIDERS: ADMIT Psychiatry & Neurology Psychiatry; ATTEND Psychiatry & Neurology Psychiatry
PROC: GZHZZZZ Group Psychotherapy (ICD-10-PCS; principal; 2024-04-06)
PROC: GZ58ZZZ Individual Psychotherapy, Cognitive-Behavioral (ICD-10-PCS; 2024-04-06)
DX: F25.0 Schizoaffective disorder, bipolar type (principal); Z91.148 Patient's other noncompliance with medication regimen for other reason; R45.851 Suicidal ideations; E78.5 Hyperlipidemia, unspecified; Z20.822 Contact with and (suspected) exposure to COVID-19; J44.9 Chronic obstructive pulmonary disease, unspecified; I10 Essential (primary) hypertension; F17.200 Nicotine dependence, unspecified, uncomplicated; F41.9 Anxiety disorder, unspecified; F43.10 Post-traumatic stress disorder, unspecified; F60.0 Paranoid personality disorder; G47.00 Insomnia, unspecified; Z59.00 Homelessness unspecified; Z88.6 Allergy status to analgesic agent; Z88.1 Allergy status to other antibiotic agents
CPT/HCPCS: 71046